=== PATIENT | female | born 1955 | race African-American/Black ===

== ENCOUNTER 2019-03-07 12:12 | Emergency (ER) | payer OTHER ==
[~2019-03-07] VITALS: Ht 160 cm; Wt 88.5 kg
--- OUTSIDE RECORDS SUMMARY | 2019-03-07 12:15 | XMS REPORT | Clinical Summary ---
Author Author [facility] Organization [facility] Address Unknown Phone Unavailable Care Team Providers Care Program Management Manager Name Role Phone Asked, No Pcp PCP Unavailable Allergies No Known Allergies Medications End Date Status Medication Sig Dispensed Refills Start Date Active valsartan-hydrochlorothia Take 1 tablet 3 zide (DIOVAN-HCT) by mouth 7 160-12.5 mg per tablet daily. Active glipiZIDE (GLUCOTROL) 5 Take 5 mg by 0 MG tablet mouth daily. Active propranolol LA (INDERAL Take 60 mg by 0 LA) 60 MG 24 hr capsule mouth daily. Active Problems Problem Noted Date Hyperlipidemia 04/02/2018 Smoking 08/27/2017 Environmental allergies 03/04/2017 Hypertension 03/04/2017 Elevated glucose level 03/04/2017 Encounters Care Team Description Date Type Specialty Jennifer Handley MD Wellness examination (Primary Dx) 09/22/2018 [facility] Jennifer Handley MD Annual physical exam (Primary Dx) 09/09/2018 Transcribe Radiology Orders Jennifer Handley MD Wellness examination (Primary Dx) 04/02/2018 [facility] after 03/06/2018 Immunizations Name Dates Previously Given Next Due FLUCELVAX QUAD PF (0.5mL 09/22/2018 syringe) INFLUENZA QUAD PF 03/04/2017 PPD Test 09/22/2018, 08/27/2017 Family History Medical History Relation Name Comments Hypertension Brother Aneurysm Mother Hypertension Sister Obesity Son Relation Name Status Comments Brother Alive Father Mother Sister Alive Son Alive Social History Date Tobacco Use Types Packs/Day Years Used Current Every Day Smoker 0.5 40 Alcohol Use Drinks/Week oz/Week Comments No rarely Sex Assigned at Date Recorded Not on file Industry Job Start Date Occupation Not on file Not on file Not on file Travel End Travel History Travel Start No recent travel history available. Last Filed Vital Signs Time Taken Vital Sign Reading 09/22/2018 11:14 AM CDT Blood Pressure 141/89 09/22/2018 11:14 AM CDT Pulse 70 - Temperature - 04/02/2018 11:25 AM CDT Respiratory Rate 18 - Oxygen Saturation - - Inhaled Oxygen - Concentration 09/22/2018 11:14 AM CDT Weight 89.9 kg (198 lb 4.8 oz) 09/22/2018 11:14 AM CDT Height 160.7 cm (5' 3.25") 09/22/2018 11:14 AM CDT Body Mass Index 34.85 Plan of Treatment Health Maintenance Due Date Last Done Comments CERVICAL CANCER SCREENING 1978 BREAST CANCER SCREENING 2007 COLON CANCER SCREENING 2007 SHINGLES VACCINES (#1) 2007 INFLUENZA VACCINE 06/25/2019 09/22/2018, 03/04/2017 Results Not on fileafter 03/06/2018 Advance Directives Patient has advance care planning documents on file. For more information, dirk flores contact: William Orellana [address] [place] [address]
--- OUTSIDE RECORDS SUMMARY | 2019-03-07 12:16 | XMS REPORT | Summary of Care ---
Author Author [facility] Primary Care [facility] Organization [facility] Address Unknown Phone Unavailable Encounter HQ Latrell_srinivasan(FIN) [id number] Date(s): 11/29/17 - 11/29/17 [facility] [address] [place] [address]- [phone] Discharge Disposition: Home or Self Care Attending Physician: Kallie Levine MD Referring Physician: Kallie Levine MD Vital Signs Most recent to 1 oldest [Reference Range]: Height 160.02 cm (11/29/17 10:46 AM) Temperature Oral 98.4 DegF [96.4-99.1 DegF] (11/29/17 10:46 AM) Blood Pressure 161/98 mmHg [90-140/60-90 mmHg] *HI* (11/29/17 10:46 AM) Respiratory Rate 12 BRMIN [14-20 BRMIN] *LOW* (11/29/17 10:46 AM) Peripheral Pulse 72 bpm Rate [60-100 bpm] (11/29/17 10:46 AM) Weight 88.182 kg (11/29/17 10:46 AM) Body Mass Index 34.44 m2 (11/29/17 10:46 AM) Problem List Condition Effective Dates Status Health Status Informant Benign hypertension1 Active Cystocele2 09/21/13 Resolved Dental consultation 06/21/15 Active and report3 Dizziness4, 5, 6, 7, 06/21/15 Active 8 H/O: hematuria9 09/28/13 Resolved Hypercholesterolemia 11/05/11 Active 10 Impaired glucose 08/29/12 Resolved zyqpvfczi52 Knee pain12, 13, 14 03/22/15 Resolved Obesity(Confirmed) Active Physical examination 06/21/15 Active bxcuqfxyy97 Shoulder joint 01/28/14 Resolved pain16 Ixhlwf58 05/15/11 Active Jadgxmc61 09/21/13 Resolved Thyroid iyfhkn18 08/29/12 Active Vitamin D 02/21/14 Active umzofjjkbs61 1Data migrated from [employer] on 04/23/15. 2Data migrated from [employer] on 04/23/15. 3Data migrated from [employer] on 07/16/15. 4Data migrated from [employer] on 07/16/15. 5Data migrated from [employer] on 06/01/15. 6Data migrated from [employer] on 06/01/15. 7Data migrated from [employer] on 04/26/15. 8Data migrated from [employer] on 04/23/15. 9Data migrated from [employer] on 06/10/15. 10Data migrated from [employer] on 04/23/15. 11Data migrated from [employer] on 04/23/15. 12Data migrated from [employer] on 06/01/15. 13Data migrated from [employer] on 06/01/15. 14Data migrated from [employer] on 04/26/15. 15Data migrated from [employer] on 07/16/15. 16Data migrated from [employer] on 04/23/15. 17Data migrated from [employer] on 04/23/15. 18Data migrated from [employer] on 04/23/15. 19Data migrated from [employer] on 04/23/15. 20Data migrated from [employer] on 04/23/15. Allergies, Adverse Reactions, Alerts Substance Reaction Severity Status metFORMIN Active Medications Astepro 0.15% (205.5 mcg/inh) nasal spray 2 spray, NASAL, BID, PRN for allergy symptoms, # 30 mL, 0 Refill(s), Pharmacy: [facility] [id number] Start Date: 11/29/17 Status: Ordered azithromycin 250 mg oral tablet See Instructions, Take 2 tablets by mouth the first day then 1 tablet by mouth d aily on days 2-5., X 5 day, # 6 tab, 0 Refill(s), Pharmacy: [facility] [id number] Start Date: 11/29/17 Stop Date: 12/04/17 Status: Completed ProAir HFA 90 mcg/inh inhalation aerosol with adapter 2 puff, INHALER, Q6H, PRN wheezing, coughing, or shortness of breath, # 1 ea, 1 Refill(s), Pharmacy: [facility] [id number] Start Date: 11/29/17 Status: Ordered Roxanasalmaría Perles 100 mg oral capsule 100 mg=1 cap, PO, Q8H, PRN cough, do not crush or chew, X 10 day, # 30 cap, 0 Re fill(s), Pharmacy: [facility] [id number] Start Date: 11/29/17 Stop Date: 12/09/17 Status: Completed Results No data available for this section Immunizations Given and Recorded Vaccine Date Status Refusal Reason influenza virus vaccine, inactivated 10/25/16 Recorded influenza virus vaccine, inactivated1 02/03/14 Given tetanus-diphtheria toxoids2 11/25/07 Given 1Result Comment: fluzone (>3 yrs.) [[id number]]. Migrated from [employer] ; Data migrated from [employer] on 12/27/2015. 2Result Comment: historical. Migrated from OBS ; Data migrated from [employer] on 12/27/2015. Procedures Procedure Date Related Diagnosis Body Site Status Repair of knee cruciate ligaments 2002 Completed Social History Social History Type Response Substance Abuse Use: None. Exercise Exercise duration: 30. Exercise frequency: 3-4 times/week. Exercise type: Walking.1 Employment/School Status: Employed. Work/School description: [employer]. Alcohol Current, Type Liquor. Frequency: 1-2 times per year. Started age 17 Years. Alcohol use interferes with work or home: No. Smoking Status Heavy tobacco smoker; Type: Cigarettes; Exposure to Tobacco Smoke None; Cigarette Smoking Last 365 Days Yes; Reg Smoking Cessation Counseling No; Started at age: 17.0; entered on: 11/29/17 1None Assessment and Plan No data available for this section
--- OUTSIDE RECORDS SUMMARY | 2019-03-07 12:16 | XMS REPORT | Summary of Care ---
Author Author [facility] Outpatient Imaging [facility] Outpatient Imaging [facility] Address Unknown Phone Unavailable Encounter HQ Anuntr_alistiven(FIN) [id number] Date(s): 04/17/18 - 04/17/18 [facility] Outpatient Imaging [facility] [address] [facility] [address] [place], [place] [address] [phone] Discharge Disposition: Home or Self Care Attending Physician: Kallie Levine MD Vital Signs No data available for this section Problem List Condition Effective Dates Status Health Status Informant Benign hypertension1 Active Cystocele2 09/21/13 Resolved Dental consultation 06/21/15 Active and report3 Dizziness4, 5, 6, 7, 06/21/15 Active 8 H/O: hematuria9 09/28/13 Resolved Hypercholesterolemia 11/05/11 Active 10 Impaired glucose 08/29/12 Resolved bpgzygcmp26 Knee pain12, 13, 14 03/22/15 Resolved Obesity(Confirmed) Active Physical examination 06/21/15 Active nnfzwyzbi08 Shoulder joint 01/28/14 Resolved pain16 Lddnav05 05/15/11 Active Uknmwfm07 09/21/13 Resolved Thyroid ljuqhs31 08/29/12 Active Vitamin D 02/21/14 Active asqfizaugm29 1Data migrated from [employer] on 04/23/15. [...] Substance Reaction Severity Status metFORMIN Active Medications No data available for this section Results No data available for this section Immunizations Given and Recorded Vaccine Date Status Refusal Reason influenza virus vaccine, inactivated 10/25/16 Recorded influenza virus vaccine, inactivated1 02/03/14 Given tetanus-diphtheria toxoids2 11/25/07 Given 1Result Comment: fluzone (>3 yrs.) [[id number]]. Migrated from OBS ; Data migrated from [employer] on 12/27/2015. 2Result Comment: historical. Migrated from OBS ; Data migrated from [employer] on 12/27/2015. Procedures Procedure Date Related Diagnosis Body Site Status Repair of knee cruciate ligaments 2002 Completed Social History Social History Type Response Substance Abuse Use: None. Exercise Exercise duration: 30. Exercise frequency: 3-4 times/week. Exercise type: Walking.1 Employment/School Status: Employed. Work/School description: [employer]. Alcohol Current, Type Liquor. Frequency: 1-2 times per year. Started age 17 Years. Alcohol use interferes with work or home: No. Smoking Status Heavy tobacco smoker; Type: Cigarettes; Exposure to Tobacco Smoke None; Cigarette Smoking Last 365 Days Yes; Reg Smoking Cessation Counseling No; Started at age: 17.0; entered on: 04/14/18 1None Assessment and Plan No data available for this section
--- OUTSIDE RECORDS SUMMARY | 2019-03-07 12:16 | XMS REPORT | Summary of Care ---
Author Author [facility] Cardiology [facility] Organization [facility] Address Unknown Phone Unavailable Encounter HQ Latrell_srinivasan(FIN) [id number] Date(s): 04/10/18 - 04/10/18 [facility] [address] [facility] [address] [place] [phone] Discharge Disposition: Home or Self Care Attending Physician: Franki Mg MD Referring Physician: Kallie Levine MD Vital Signs Most recent to 1 oldest [Reference Range]: Height 160.02 cm (04/10/18 11:06 AM) Blood Pressure 144/92 mmHg [90-140/60-90 mmHg] *HI* (04/10/18 11:06 AM) Peripheral Pulse 62 bpm Rate [60-100 bpm] (04/10/18 11:06 AM) Weight 90 kg (04/10/18 11:06 AM) Body Mass Index 35.15 m2 (04/10/18 11:06 AM) Problem List Condition Effective Dates Status Health Status Informant Benign hypertension1 Active Cystocele2 09/21/13 Resolved Dental consultation 06/21/15 Active and report3 Dizziness4, 5, 6, 7, 06/21/15 Active 8 H/O: hematuria9 09/28/13 Resolved Hypercholesterolemia 11/05/11 Active 10 Impaired glucose 08/29/12 Resolved mqiclyhvc68 Knee pain12, 13, 14 03/22/15 Resolved Obesity(Confirmed) Active Physical examination 06/21/15 Active xzpnrcjuz35 Shoulder joint 01/28/14 Resolved pain16 Oopvul23 05/15/11 Active Ssgwjfl22 09/21/13 Resolved Thyroid bkaulh68 08/29/12 Active Vitamin D 02/21/14 Active wsbxbjsenc59 1Data migrated from [employer] on 04/23/15. [...] Reaction Severity Status metFORMIN Active Medications No Known Medications Results No data available for this section Immunizations Given and Recorded Vaccine Date Status Refusal Reason influenza virus vaccine, inactivated 10/25/16 Recorded influenza virus vaccine, inactivated1 02/03/14 Given tetanus-diphtheria toxoids2 11/25/07 Given 1Result Comment: fluzone (>3 yrs.) [[id number]]. Migrated from OBS ; Data migrated from [...] No; Started at age: 17.0; entered on: 04/10/18 1None Assessment and Plan No data available for this section
--- OUTSIDE RECORDS SUMMARY | 2019-03-07 12:16 | XMS REPORT | Summary of Care ---
Author Author [facility] Primary Care [facility] Organization [facility] Address Unknown Phone Unavailable Encounter HQ Encntr_alias(FIN) [id number] Date(s): 02/27/19 - 02/28/19 [facility] [address] [facility] [place] [address]- [phone] Vital Signs No data available for this section Problem List Condition Effective Dates Status Health Status Informant Benign hypertension1 Active Cystocele2 09/21/13 Resolved Dental consultation 06/21/15 Active and report3 Dizziness4, 5, 6, 7, 06/21/15 Active 8 H/O: hematuria9 09/28/13 Resolved Hypercholesterolemia 11/05/11 Active 10 Impaired glucose 08/29/12 Resolved Knee pain12, 13, 14 03/22/15 Resolved Obesity(Confirmed) Active Physical examination 06/21/15 Active axmmpwgfn70 Shoulder joint 01/28/14 Resolved pain16 Ednfln24 05/15/11 Active Qzxcsvr62 09/21/13 Resolved Thyroid vrmyrn48 08/29/12 Active Vitamin D 02/21/14 Active rqkcuwjteg74 1Data migrated from [employer] on 04/23/15. [...] Substance Reaction Severity Status metFORMIN Active Medications Micardis HCT 80 mg-25 mg oral tablet 1 tab, PO, Daily, # 90 tab, 0 Refill(s), Pharmacy: [facility] [id number] Start Date: 02/28/19 Stop Date: 03/30/19 Status: Ordered Results No data available for this section Immunizations Given and Recorded Vaccine Date Status Refusal Reason influenza virus vaccine, inactivated 10/25/16 Recorded influenza virus vaccine, inactivated1 02/03/14 Given tetanus-diphtheria toxoids2 11/25/07 Given 1Result Comment: fluzone (>3 yrs.) [[id number]]. Migrated from OBS ; Data migrated from [...] type: Walking.1 Employment/School Status: Employed. Work/School description: [employer]. Alcohol Current, Type Liquor. Frequency: 1-2 times per year. Started age 17 Years. Alcohol use interferes with work or home: No. Smoking Status Heavy tobacco smoker; Type: Cigarettes; Exposure to Tobacco Smoke None; Cigarette Smoking Last 365 Days Yes; Reg Smoking Cessation Counseling No; Started at age: 17.0; entered on: 09/01/18 1None Assessment and Plan No data available for this section
--- OUTSIDE RECORDS SUMMARY | 2019-03-07 12:16 | XMS REPORT | Summary of Care ---
Author Author [facility] Primary Care [facility] Address Unknown Phone Unavailable Encounter HQ Anuntr_srinivasan(FIN) [id number] Date(s): 04/02/18 - 04/02/18 [facility] [address] [place] [address]- [phone] Discharge Disposition: Home or Self Care Attending Physician: Kallie Levine MD Referring Physician: Kallie Levine MD Vital Signs Most recent to 1 oldest [Reference Range]: Height 160 cm (04/02/18 2:08 PM) Temperature Oral 98.1 DegF [96.4-99.1 DegF] (04/02/18 2:08 PM) Blood Pressure 177/92 mmHg [90-140/60-90 mmHg] *HI* (04/02/18 2:08 PM) Peripheral Pulse 66 bpm Rate [60-100 bpm] (04/02/18 2:08 PM) Weight 92.386 kg (04/02/18 2:08 PM) Body Mass Index 36.09 m2 (04/02/18 2:08 PM) Problem List Condition Effective Dates Status Health Status Informant Benign hypertension1 Active Cystocele2 09/21/13 Resolved Dental consultation 06/21/15 Active and report3 Dizziness4, 5, 6, 7, 06/21/15 Active 8 H/O: hematuria9 09/28/13 Resolved Hypercholesterolemia 11/05/11 Active 10 Impaired glucose 08/29/12 Resolved iiugzxqgl24 Knee pain12, 13, 14 03/22/15 Resolved Obesity(Confirmed) Active Physical examination 06/21/15 Active eciehgirk21 Shoulder joint 01/28/14 Resolved pain16 Iovtls77 05/15/11 Active Pwwfdjg21 09/21/13 Resolved Thyroid deinyi78 08/29/12 Active Vitamin D 02/21/14 Active tfwxdmflbi91 1Data migrated from [employer] on 04/23/15. [...] Substance Reaction Severity Status metFORMIN Active Medications amLODIPine 2.5 mg oral tablet 2.5 mg=1 tab, PO, Daily, # 90 tab, 1 Refill(s), Pharmacy: [facility] [id number] Start Date: 04/02/18 Status: Ordered glipiZIDE 5 mg oral tablet See Instructions, TAKE 1 TABLET BY MOUTH BEFORE BREAKFAST, # 90 tab, 1 Refill(s) , Pharmacy: [facility] [id number] Start Date: 04/02/18 Status: Ordered hydrochlorothiazide-valsartan 25 mg-320 mg oral tablet 1 tab, PO, Daily, # 90 tab, 1 Refill(s), Pharmacy: [facility] [id number] Start Date: 04/02/18 Status: Ordered Lipitor 40 mg oral tablet 40 mg=1 tab, PO, Bedtime, # 90 tab, 1 Refill(s), Pharmacy: [facility] [id number] Start Date: 04/02/18 Status: Ordered Results No data available for this section Immunizations Given and Recorded Vaccine Date Status Refusal Reason influenza virus vaccine, inactivated 10/25/16 Recorded influenza virus vaccine, inactivated1 02/03/14 Given tetanus-diphtheria toxoids2 11/25/07 Given 1Result Comment: fluzone (>3 yrs.) [[id number]]. Migrated from [employer] ; Data migrated from [employer] on 12/27/2015. 2Result Comment: historical. Migrated from [employer] ; Data migrated from [employer] on 12/27/2015. Procedures Procedure Date Related Diagnosis Body Site Status Repair of knee cruciate ligaments 2002 Completed Social History Social History Type Response Substance Abuse Use: None. Exercise Exercise duration: 30. Exercise frequency: 3-4 times/week. Exercise type: Walking.1 Employment/School Status: Employed. Work/School description: [employer]. Alcohol Current, Type Liquor. Frequency: 1-2 times per year. Started age 17 Years. Alcohol use interferes with work or home: No. Smoking Status Heavy tobacco smoker; Type: Cigarettes; Exposure to Tobacco Smoke None; Cigarette Smoking Last 365 Days Yes; Reg Smoking Cessation Counseling No; Started at age: 17.0; entered on: 04/02/18 1None Assessment and Plan No data available for this section
--- OUTSIDE RECORDS SUMMARY | 2019-03-07 12:16 | XMS REPORT | Summary of Care ---
Author Author [facility] Primary Care [facility] Organization [facility] Address Unknown Phone Unavailable Encounter HQ Encntr_alias(FIN) [id number] Date(s): 02/18/19 - 02/19/19 [facility] [address] [place] [address]- [phone] Vital Signs No data available for this section Problem List Condition Effective Dates Status Health Status Informant Benign hypertension1 Active Cystocele2 09/21/13 Resolved Dental consultation 06/21/15 Active and report3 Dizziness4, 5, 6, 7, 06/21/15 Active 8 H/O: hematuria9 09/28/13 Resolved Hypercholesterolemia 11/05/11 Active 10 Impaired glucose 08/29/12 Resolved xmefmulss70 Knee pain12, 13, 14 03/22/15 Resolved Obesity(Confirmed) Active Physical examination 06/21/15 Active njgypnens88 Shoulder joint 01/28/14 Resolved pain16 Djhzgf60 05/15/11 Active Jijflza44 09/21/13 Resolved Thyroid dbgobm09 08/29/12 Active Vitamin D 02/21/14 Active llnngvuxvw58 1Data migrated from [employer] on 04/23/15. [...] 11/25/07 Given 1Result Comment: fluzone (>3 yrs.) [[id number]]. Migrated from OBS ; Data migrated from [...] type: Walking.1 Employment/School Status: Employed. Work/School description: [employer]. Alcohol Current, Type Liquor. Frequency: 1-2 times [...]
--- OUTSIDE RECORDS SUMMARY | 2019-03-07 12:16 | XMS REPORT | Summary of Care ---
Author Author [facility] Primary Care [facility] Address Unknown Phone Unavailable Encounter HQ Anuntr_alistiven(FIN) [id number] Date(s): 04/14/18 - 04/14/18 [facility] [address] [address]- [phone] Attending Physician: Kallie Levine MD Referring Physician: Kallie Levine MD Vital Signs No data available for this section Problem List Condition Effective Dates Status Health Status Informant Benign hypertension1 Active Cystocele2 09/21/13 Resolved Dental consultation 06/21/15 Active and report3 Dizziness4, 5, 6, 7, 06/21/15 Active 8 H/O: hematuria9 09/28/13 Resolved Hypercholesterolemia 11/05/11 Active 10 Impaired glucose 08/29/12 Resolved xsivrfnfx50 Knee pain12, 13, 14 03/22/15 Resolved Obesity(Confirmed) Active Physical examination 06/21/15 Active eijofzfad37 Shoulder joint 01/28/14 Resolved pain16 Ecbksr77 05/15/11 Active Ylklybd53 09/21/13 Resolved Thyroid muhwpq58 08/29/12 Active Vitamin D 02/21/14 Active tloeowfbch30 1Data migrated from [employer] on 04/23/15. [...] 11/25/07 Given 1Result Comment: fluzone (>3 yrs.) [[id number]]. Migrated from OBS ; Data migrated from [...] type: Walking.1 Employment/School Status: Employed. Work/School description: [employer]. Alcohol Current, Type Liquor. Frequency: 1-2 times [...]
--- OUTSIDE RECORDS SUMMARY | 2019-03-07 12:16 | XMS REPORT | Summary of Care ---
Author Author [facility] Cardiology [facility] Organization [facility] Cardiology [facility] Address Unknown Phone Unavailable Encounter HQ Yadira(FIN) [id number] Date(s): 04/14/18 - 04/14/18 [facility] [address] [facility] [address] [facility] [address] [place] [phone] Discharge Disposition: Home or Self Care Attending Physician: Franki Mg MD Referring Physician: Kallie Levine MD Vital Signs Most recent to 1 oldest [Reference Range]: Height 160.02 cm (04/14/18 10:44 AM) Blood Pressure 114/74 mmHg [90-140/60-90 mmHg] (04/14/18 10:44 AM) Peripheral Pulse 59 bpm Rate [60-100 bpm] *LOW* (04/14/18 10:44 AM) Weight 90 kg (04/14/18 10:44 AM) Body Mass Index 35.15 m2 (04/14/18 10:44 AM) Problem List Condition Effective Dates Status Health Status Informant Benign hypertension1 Active Cystocele2 09/21/13 Resolved Dental consultation 06/21/15 Active and report3 Dizziness4, 5, 6, 7, 06/21/15 Active 8 H/O: hematuria9 09/28/13 Resolved Hypercholesterolemia 11/05/11 Active 10 Impaired glucose 08/29/12 Resolved qxwphoykv14 Knee pain12, 13, 14 03/22/15 Resolved Obesity(Confirmed) Active Physical examination 06/21/15 Active dcdtnnels12 Shoulder joint 01/28/14 Resolved pain16 Clowrj83 05/15/11 Active Pzrkfcu11 09/21/13 Resolved Thyroid nhrysy00 08/29/12 Active Vitamin D 02/21/14 Active igxgnwonru84 1Data migrated from [employer] on 04/23/15. [...] 11/25/07 Given 1Result Comment: fluzone (>3 yrs.) [[id number]]. Migrated from OBS ; Data migrated from [...] type: Walking.1 Employment/School Status: Employed. Work/School description: [employer]. Alcohol Current, Type Liquor. Frequency: 1-2 times [...]
--- OUTSIDE RECORDS SUMMARY | 2019-03-07 12:16 | XMS REPORT | Summary of Care ---
Author Author [facility] Address Unknown Phone Unavailable Encounter HQ Florianr_srinivasan(FIN) [id number] Date(s): 04/08/18 - 04/08/18 [facility] [address] [address]- [phone] Discharge Disposition: Home or Self Care Attending Physician: Kallie Levine MD Vital Signs Most recent to 1 oldest [Reference Range]: Height 157.48 cm (04/08/18 3:17 PM) Temperature Oral 98.5 DegF [96.4-99.1 DegF] (04/08/18 3:17 PM) Blood Pressure 147/90 mmHg [90-140/60-90 mmHg] *HI* (04/08/18 3:17 PM) Respiratory Rate 15 BRMIN [14-20 BRMIN] (04/08/18 3:17 PM) Peripheral Pulse 71 bpm Rate [60-100 bpm] (04/08/18 3:17 PM) Weight 89.091 kg (04/08/18 3:17 PM) Body Mass Index 35.92 m2 (04/08/18 3:17 PM) Problem List Condition Effective Dates Status Health Status Informant Benign hypertension1 Active Cystocele2 09/21/13 Resolved Dental consultation 06/21/15 Active and report3 Dizziness4, 5, 6, 7, 06/21/15 Active 8 H/O: hematuria9 09/28/13 Resolved Hypercholesterolemia 11/05/11 Active 10 Impaired glucose 08/29/12 Resolved [id number] Knee pain12, 13, 14 03/22/15 Resolved Obesity(Confirmed) Active Physical examination 06/21/15 Active Shoulder joint 01/28/14 Resolved pain16 Ujqnss18 05/15/11 Active Hamiuwg20 09/21/13 Resolved Thyroid [id number] 08/29/12 Active Vitamin D 02/21/14 Active [id number] 1Data migrated from [employer] on 04/23/15. [...] Substance Reaction Severity Status metFORMIN Active Medications hydrochlorothiazide 25 mg oral tablet 25 mg=1 tab, PO, Daily, # 30 tab, 1 Refill(s) Start Date: 04/08/18 Status: Ordered propranolol 60 mg oral capsule, extended release 60 mg=1 cap, PO, Daily, # 30 cap, 0 Refill(s) Start Date: 04/08/18 Status: Ordered Results No data available for this section Immunizations Given and Recorded Vaccine Date Status Refusal Reason influenza virus vaccine, inactivated 10/25/16 Recorded influenza virus vaccine, inactivated1 02/03/14 Given tetanus-diphtheria toxoids2 11/25/07 Given 1Result Comment: fluzone (>3 yrs.) [[id number]]. Migrated from OBS ; Data migrated from [employer] on 12/27/2015. 2Result Comment: historical. Migrated from OBS ; Data migrated from [employer] on 12/27/2015. Procedures Procedure Date Related Diagnosis Body Site Status Repair of knee cruciate ligaments 2002 Completed Social History Social History Type Response Substance Abuse Use: None. Exercise Exercise duration: 30. Exercise frequency: 3-4 times/week. Exercise type: Walking.1 Employment/School Status: Employed. Work/School description: [employer]. Alcohol Current, Type Liquor. Frequency: 1-2 times [...]
--- OUTSIDE RECORDS SUMMARY | 2019-03-07 12:16 | XMS REPORT | Continuity of Care Document ---
Author Author [facility] Interface Address Unknown Phone Unavailable Problems Problem Status Onset Date Classification Date Reported Comments Source M79.671 - PAIN IN RIGHT FOOT Active 07/16/2016 [facility] SCREENING Active 06/23/2015 [facility] Dental consultation and report<sup>3</sup> Active 06/21/2015 Problem 03/06/2019 Data migrated from [employer] on 07/16/15. [facility] Dizziness<sup>4, 5, 6, 7, 8</sup> Active 06/21/2015 Problem 03/06/2019 Data migrated from [employer] on 04/23/15. [facility] Physical examination procedure<sup>15</sup> Active 06/21/2015 Problem 03/06/2019 Data migrated from [employer] on 07/16/15. [facility] PHYSICAL EXAM Active 06/21/2015 Condition 06/23/2015 [facility] DENTAL EXAMINATION Active 06/21/2015 Condition 06/23/2015 [facility] Knee pain<sup>12, 13, 14</sup> Resolved 03/22/2015 Problem 03/06/2019 Data migrated from [employer] on 04/26/15. [facility] KNEE PAIN Active 03/22/2015 Condition 06/23/2015 [facility] CHEST PAIN Active 11/08/2014 Condition 06/23/2015 [facility] DIZZINESS Active 03/10/2014 Condition 06/23/2015 [facility] Vitamin D deficiency<sup>20</sup> Active 02/21/2014 Problem 03/06/2019 Data migrated from [employer] on 04/23/15. [facility] VITAMIN D DEFICIENCY Active 02/21/2014 Condition 06/23/2015 [facility] Group V76.12 - SCREEN MAMMOGRA Active 02/10/2014 [facility] ROUTINE GYNECOLOGICAL EXAMINATION Active 02/03/2014 Condition 06/23/2015 [facility] OTHER SCREENING MAMMOGRAM Active 02/03/2014 Condition 06/23/2015 [facility] PHYSICAL EXAMINATION Active 02/03/2014 Condition 06/23/2015 [facility] SPECIAL SCREENING EXAMINATION OTH SPEC VIRAL DZ Active 02/03/2014 Condition 06/23/2015 [facility] Shoulder joint pain<sup>16</sup> Resolved 01/28/2014 Problem 03/06/2019 Data migrated from [employer] on 04/23/15. JER[facility]IE [facility] SHOULDER PAIN, RIGHT Active 01/28/2014 Condition 06/23/2015 [facility] 599.70 - HEMATURIA NOS Active 10/01/2013 [facility] H/O: hematuria<sup>9</sup> Resolved 09/28/2013 Problem 03/06/2019 Data migrated from [employer] on 06/10/15. [facility] HEMATURIA, MICROSCOPIC, HX OF Inactive 09/28/2013 Condition 06/23/2015 [facility] JULIANE Active 09/24/2013 [facility] Cystocele<sup>2</sup> Resolved 09/21/2013 Problem 03/06/2019 Data migrated from [employer] on 04/23/15. JERAMIE [facility] Snoring<sup>18</sup> Resolved 09/21/2013 Problem 03/06/2019 Data migrated from [employer] on 04/23/15. JERAMIE [facility] SNORING Active 09/21/2013 Condition 06/23/2015 [facility] CYSTOCELE WITHOUT MENTION UTERINE PROLAPSE LAT Active 09/21/2013 Condition 06/23/2015 [facility] FATIGUE, ACUTE Inactive 02/04/2013 Condition 06/23/2015 [facility] Impaired glucose tolerance<sup>11</sup> Resolved 08/29/2012 Problem 03/06/2019 Data migrated from [employer] on 04/23/15. [facility] Thyroid nodule<sup>19</sup> Active 08/29/2012 Problem 03/06/2019 Data migrated from [employer] on 04/23/15. [facility] SCREENING, COLON CANCER Active 08/29/2012 Condition 06/23/2015 [facility] PREDIABETES Active 08/29/2012 Condition 06/23/2015 [facility] SCIATICA, RIGHT Inactive 08/14/2012 Condition 06/23/2015 [facility] ABSCESS, BREAST, LEFT Inactive 12/19/2011 Condition 06/23/2015 [facility] Hypercholesterolemia<sup>10</sup> Active 11/05/2011 Problem 03/06/2019 Data migrated from [employer] on 04/23/15. [facility] HYPERCHOLESTEROLEMIA Active 11/05/2011 Condition 06/23/2015 [facility] FASTING HYPERGLYCEMIA Inactive 07/11/2011 Condition 06/23/2015 [facility] NEUROMUSCULAR DISORDER Inactive 07/01/2011 Condition 06/23/2015 [facility] Smoker<sup>17</sup> Active 05/15/2011 Problem 03/06/2019 Data migrated from [employer] on 04/23/15. [facility] COUGH, CHRONIC Inactive 05/15/2011 Condition 06/23/2015 [facility] SMOKER Active 05/15/2011 Condition 06/23/2015 [facility] THYROID NODULE Inactive 05/15/2011 Condition 06/23/2015 [facility] GERD Inactive 05/15/2011 Condition 06/23/2015 [facility] DERMATITIS Inactive 05/15/2011 Condition 06/23/2015 [facility] Benign hypertension<sup>1</sup> Active Problem 03/06/2019 Data migrated from [employer] on 04/23/15. [facility] Obesity Active Problem 03/06/2019 JER[facility]IE [facility] HYPERTENSION - BENIGN ESSENTIAL Active Condition 06/23/2015 Medical [facility] FH DIABETES - DM Inactive Condition 06/23/2015 [facility] Medications Medication Details Route Status Patient Instructions Ordering Provider Order Date Source propranolol 60 mg oral capsule, extended release 60 mg=1 cap, PO, Daily, # 30 cap, 2 Refill(s), Pharmacy: [facility] [id number] Active 03/04/2019 [facility] Hydrochlorothiazide 25 MG / telmisartan 80 MG Oral Tablet [Micardis-HCT 80/25] 1 tab, PO, Daily, # 30 tab, 2 Refill(s), Pharmacy: [facility] [id number] Active 03/04/2019 [facility] Glipizide 10 MG Oral Tablet 10 mg=1 tab, PO, Before Breakfast, # 30 tab, 2 Refill(s), Pharmacy: [facility] [id number] Active 03/04/2019 [facility] Fenofibrate 48 MG Oral Tablet =1 cap, PO, Daily, # 30 cap, 2 Refill(s), Pharmacy: [facility] [id number] Active 03/04/2019 [facility] atorvastatin 40 MG Oral Tablet [Lipitor] 40 mg=1 tab, PO, Bedtime, # 30 tab, 2 Refill(s), Pharmacy: [facility] [id number] Active 03/04/2019 [facility] amLODIPine 2.5 mg oral tablet 2.5 mg=1 tab, PO, Daily, # 30 tab, 2 Refill(s), Pharmacy: [facility] [id number] Active 03/04/2019 [facility] Hydrochlorothiazide 25 MG / telmisartan 80 MG Oral Tablet [Micardis-HCT 80/25] 1 tab, PO, Daily, # 90 tab, 0 Refill(s), Pharmacy: [facility] [id number] Active 03/01/2019 [facility] amLODIPine 2.5 mg oral tablet 2.5 mg=1 tab, PO, Daily, # 90 tab, 0 Refill(s), [facility] [id number] Active 06/05/2018 [facility] Glipizide 10 MG Oral Tablet 10 mg=1 tab, PO, Before Breakfast, # 120 tab, 0 Refill(s), [facility] [id number] Active 05/10/2018 [facility] propranolol 60 mg oral capsule, extended release 60 mg=1 cap, PO, Daily, # 120 cap, 0 Refill(s), [facility] [id number] Active 05/10/2018 [facility] Hydrochlorothiazide 25 MG Oral Tablet 25 mg=1 tab, PO, Daily, # 30 tab, 1 Refill(s) Active 04/08/2018 [facility] propranolol 60 mg oral capsule, extended release 60 mg=1 cap, PO, Daily, # 30 cap, 0 Refill(s) Active 04/08/2018 [facility] Glipizide 5 MG Oral Tablet See Instructions, TAKE 1 TABLET BY MOUTH BEFORE BREAKFAST, # 90 tab, 1 Refill(s), [facility] [id number] Active 04/02/2018 [facility] atorvastatin 40 MG Oral Tablet [Lipitor] 40 mg=1 tab, PO, Bedtime, # 90 tab, 1 Refill(s), Pharmacy: [facility] [id number] Active 04/02/2018 [facility] Hydrochlorothiazide 25 MG / valsartan 320 MG Oral Tablet 1 tab, PO, Daily, # 90 tab, 1 Refill(s), [facility] [id number] Active 04/02/2018 [facility] amLODIPine 2.5 mg oral tablet 2.5 mg=1 tab, PO, Daily, # 90 tab, 1 Refill(s), Pharmacy: [facility] [id number] Active 04/02/2018 [facility] 200 ACTUAT Albuterol 0.09 MG/ACTUAT Metered Dose Inhaler [ProAir HFA] 2 puff, INHALER, Q6H, PRN wheezing, coughing, or shortness of breath, # 1 ea, 1 Refill(s), Pharmacy: [facility] [id number] Active 11/29/2017 [facility] azithromycin 250 mg oral tablet See Instructions, Take 2 tablets by mouth the first day then 1 tablet by mouth daily on days 2-5., X 5 day, # 6 tab, 0 Refill(s), [facility] [id number] No Longer Active 11/29/2017 [facility] benzonatate 100 MG Oral Capsule [Tessalon Perles] 100 mg=1 cap, PO, Q8H, PRN cough, do not crush or chew, X 10 day, # 30 cap, 0 Refill(s), [facility] [id number] No Longer Active 11/29/2017 [facility] Azelastine hydrochloride 0.206 MG/ACTUAT Metered Dose Nasal [place] [Astepro] 2 spray, NASAL, BID, PRN for allergy symptoms, # 30 mL, 0 Refill(s), [facility] [id number] Active 11/29/2017 [facility] D 2000 2000 UNIT TABS Take 1 pill by mouth once a day Active 02/21/2014 [facility] LIPITOR 40 MG TABS Take 1 pill by mouth at bedtime Active 02/21/2014 [facility] SIMVASTATIN 20 MG TABS Take 1 pill by mouth at bedtime Active 02/21/2014 [facility] LIPITOR 40 MG TABS Take 1 pill by mouth at bedtime Active 02/21/2014 [facility] MEDROL (ROXY) 4 MG TABS Take as directed No Longer Active 08/14/2012 [facility] DIOVAN 160 MG TAB one po qday Active 08/14/2012 [facility] CHANTIX STARTING MONTH ORXY 0.5 MG X 11 & 1 MG X 14 MISC 0.5mg po qd x3 days, then 0.5mg bid x3 days, then 1 mg bid No Longer Active 08/14/2012 [facility] NAPROXEN 500 MG TABS one po [id number] prn No Longer Active 08/14/2012 [facility] NAPROXEN 500 MG TABS one po [id number] prn No Longer Active 08/14/2012 [facility] DIOVAN 160 MG TAB one po qday Active 08/14/2012 [facility] NAPROXEN 500 MG TABS one po [id number] prn No Longer Active 08/14/2012 [facility] DICLOXACILLIN SODIUM 500 MG CAPS take 1 po qid x 10 d No Longer Active 12/19/2011 [facility] NASONEX SUSP 50 MCG/ACT 2 spray each nostril daily prn allergies No Longer Active 07/19/2011 [facility] NASONEX SUSP 50 MCG/ACT 2 spray each nostril daily prn allergies No Longer Active 07/19/2011 [facility] NASONEX SUSP 50 MCG/ACT 2 spray each nostril daily prn allergies No Longer Active 07/19/2011 [facility] DIOVAN 160 MG TABS take 1/2 a pill po qd No Longer Active 07/13/2011 [facility] METOPROLOL TARTRATE 50 MG TABS take 1 po qd Active 07/13/2011 [facility] METOPROLOL TARTRATE 50 MG TABS take 1 po qd No Longer Active 07/13/2011 [facility] DIOVAN 160 MG TABS take 1/2 a pill po qd No Longer Active 07/13/2011 [facility] METOPROLOL TARTRATE 50 MG TABS take 1 po qd No Longer Active 07/13/2011 [facility] DOXAZOSIN MESYLATE 4 MG TABS 1 po qd Active 05/15/2011 [facility] TRIAMTERENE-HCTZ 37.5-25 MG TABS 1 po qd Active 05/15/2011 [facility] TUSSIONEX PENNKINETIC ER 8-10 MG/5ML LQCR 1 tsp po bid prn cough No Longer Active 05/15/2011 [facility] PERMETHRIN 5 % CREA put cream on entire body and wash off in 8-14 h, then repeat in 14 d if live mites still present No Longer Active 05/15/2011 [facility] LISINOPRIL 10 MG TABS 1 po qd No Longer Active 05/15/2011 [facility] HYDROXYZINE HCL 25 MG TABS 1 po bid for itching No Longer Active 05/15/2011 [facility] PRILOSEC CAP 20MG CR 1 po q a.m. 1 h before eating/drinking anything No Longer Active 05/15/2011 [facility] DOXAZOSIN MESYLATE 4 MG TABS 1 po qd Active 05/15/2011 [facility] LISINOPRIL 10 MG TABS 1 po qd No Longer Active 05/15/2011 [facility] DOXAZOSIN MESYLATE 4 MG TABS 1 po qd Active 05/15/2011 [facility] TRIAMTERENE-HCTZ 37.5-25 MG TABS 1 po qd Active 05/15/2011 [facility] DOXAZOSIN MESYLATE 4 MG TABS 1 po qd Active 05/15/2011 [facility] LISINOPRIL 10 MG TABS 1 po qd No Longer Active 05/15/2011 [facility] HYDROXYZINE HCL 25 MG TABS 1 po bid for itching No Longer Active 05/15/2011 [facility] Allergies, Adverse Reactions, Alerts Substance Category Reaction Severity Reaction type Status Date Reported Comments Source metFORMIN Assertion Drug allergy Active [facility] Immunizations Immunization Date Given Site Status Last Updated Comments Source influenza virus vaccine, inactivated 10/25/2016 robin Levine [facility] influenza immunization (Flu Vax) has been administered 02/03/2014 completed [facility] influenza virus vaccine, inactivated<sup>1</sup> 02/03/2014 Left Deltoid completed GE Result Comment: fluzone (>3 yrs.) [[id number]]. Migrated from OBS ; Data migrated from [employer] on 12/27/2015. JERAMIE [facility] tetanus-diphtheria toxoids<sup>2</sup> 11/25/2007 completed GE Result Comment: historical. Migrated from OBS ; Data migrated from [employer] on 12/27/2015. [facility] dT (Diphtheria and Tetanus) booster given 11/25/2007 completed [facility] Results Order Name Results Value Reference Range Date Interpretation Comments Source Thyroid US Thyroid US Clinical Indication: E04.1 Nontoxic single thyroid nodule - .; Comparison: 09/25/2013. TECHNIQUE: Sonographic evaluation of the thyroid gland is performed FINDINGS: The right thyroid gland measures 4.3 x 1.6 x 1.8 cm. The left thyroid gland measures 4.3 x 1.4 x 2.0 cm. The thyroid isthmus measures 0.8 cm in thickness. At the isthmus, there is a 0.9 x 0.7 x 0.8 cm slightly hypoechoic nodule. More inferiorly in the isthmus, an isoechoic 1.4 x 1.4 x 1.3 cm solid nodule is present. Within the right lobe upper pole is 0.3 x 0.2 x 0.2 cm anechoic cyst is present. Larger adjacent 1.0 x 0.7 x 0.7 cm anechoic cyst is seen. Smaller 0.3 cm adjacent anechoic cyst is noted. There is a lower pole 0.5 x 0.3 x 0.5 cm hypoechoic nodule, previously measuring 0.4 cm. In the left lobe, there is an upper pole 1.0 x 0.6 x 0.8 cm anechoic cyst. Adjacent 0.5 x 0.3 x 0.4 cm anechoic cyst is noted. Lower pole slightly hypoechoic solid nodule measures 1.0 x 0.6 x 0.9 cm, previously measuring 0.6 cm. Mid to lower pole isoechoic solid 1.3 x 1.3 x 1.6 cm nodule is noted. Normal color Doppler flow is visualized. There is no adjacent jugular chain lymphadenopathy. IMPRESSION: 1. Left lobe mid to lower pole isoechoic solid nodule measures 1.6 cm, classified as TI-RADS 3. Based on size criteria and interval appearance since prior thyroid ultrasound of 09/25/2013, ultrasound-guided fine-needle aspiration is advised. 2. 2 isthmus nodules appear new since the prior examination. Hypoechoic 0.9 cm nodule is classified as TI-RADS 4 and adjacent isoechoic 1.4 cm nodule is classified as TI-RADS 3. Ultrasound follow-up is suggested for these nodules. SL: [id number] 04/17/2018 - - Read by: Khanh Childers MD Dictated Date/time: 04/17/18 17:01 Electronically Signed by: Khanh Childers MD 04/17/18 17:14 FINAL REPORT [facility] Foot series DX Foot series DX Study: Right foot, 3 views Clinical Indication: Right foot pain Comparison: None FINDINGS: Multiple views of the right foot show no acute bony fracture, joint dislocation, or suspicious osseous lesion. Punctate 1 mm radiopaque density in the tip of the soft tissues of the 1st toe is seen, may represent foreign body. Posterior and plantar calcaneal enthesophytes are noted. IMPRESSION: No acute bony abnormality of the right foot. SL: [id number] 07/16/2016 - - Read by: Manjit Seaman MD Dictated Date/time: 07/16/16 11:59 Electronically Signed by: Manjit Seaman MD 07/16/16 12:00 FINAL REPORT [facility] Urinalysis UA COLOR Light Yellow 06/21/2015 [facility] Group Urinalysis BACTERIA URN Occasional 06/21/2015 [facility] Chemistry HGBA1C 6.5 % - 5.6 08/31/2014 [facility] Chemistry CHOLESTEROL 166 mg/dl - 199 08/31/2014 [facility] Chemistry TRIGLYCERIDE 340 mg/dl - 149 08/31/2014 [facility] Chemistry HDL 30 mg/dl >=61 08/31/2014 [facility] Chemistry LDL 68 mg/dl - 99 08/31/2014 [facility] Chemistry SODIUM 141 MEQ/L mmol/L 135 - 145 08/31/2014 [facility] Chemistry POTASSIUM 4.1 MEQ/L mmol/L 3.5 - 5.1 08/31/2014 [facility] Chemistry CREATININE 0.6 mg/dL 0.5 - 1.4 08/31/2014 [facility] Chemistry BUN 15 mg/dL 7 - 22 08/31/2014 [facility] Chemistry BUN/CREAT 25 6 - 25 08/31/2014 [facility] Chemistry ALBUMIN 4.1 g/dL 3.5 - 5.0 08/31/2014 [facility] Chemistry CALCIUM 9.5 mg/dL 8.5 - 10.5 08/31/2014 [facility] Chemistry SGPT (ALT) 22 U/L 0 - 65 08/31/2014 [facility] Chemistry SGOT (AST) 14 U/L 0 - 37 08/31/2014 [facility] Chemistry ALK PHOS 66 U/L 39 - 136 08/31/2014 [facility] Hematology HGB 13.0 g/dL 12.0 - 16.0 08/31/2014 [facility] Hematology HCT 37.8 % 36.0 - 48.0 08/31/2014 [facility] Hematology PLATELETS 285 K/CMM /mm3 133 - 450 08/31/2014 [facility] Chemistry SODIUM 139 MEQ/L mmol/L 135 - 145 03/10/2014 [facility] Chemistry POTASSIUM 4.4 MEQ/L mmol/L 3.5 - 5.1 03/10/2014 [facility] Chemistry CREATININE 0.6 mg/dL 0.5 - 1.4 03/10/2014 [facility] Chemistry BUN 14 mg/dL 7 - 22 03/10/2014 [facility] Chemistry BUN/CREAT 23 6 - 25 03/10/2014 [facility] Chemistry ALBUMIN 4.3 g/dL 3.5 - 5.0 03/10/2014 [facility] Chemistry CALCIUM 9.1 mg/dL 8.5 - 10.5 03/10/2014 [facility] Chemistry SGPT (ALT) 20 U/L 0 - 65 03/10/2014 [facility] Chemistry SGOT (AST) 12 U/L 0 - 37 03/10/2014 [facility] Chemistry ALK PHOS 63 U/L 39 - 136 03/10/2014 [facility] Chemistry SODIUM 139 MEQ/L mmol/L 135 - 145 03/10/2014 [facility] Chemistry POTASSIUM 4.4 MEQ/L mmol/L 3.5 - 5.1 03/10/2014 [facility] Chemistry CREATININE 0.6 mg/dL 0.5 - 1.4 03/10/2014 [facility] Chemistry BUN 14 mg/dL 7 - 22 03/10/2014 [facility] Chemistry BUN/CREAT 23 6 - 25 03/10/2014 [facility] Chemistry ALBUMIN 4.3 g/dL 3.5 - 5.0 03/10/2014 [facility] Chemistry CALCIUM 9.1 mg/dL 8.5 - 10.5 03/10/2014 [facility] Chemistry SGPT (ALT) 20 U/L 0 - 65 03/10/2014 [facility] Chemistry SGOT (AST) 12 U/L 0 - 37 03/10/2014 [facility] Chemistry ALK PHOS 63 U/L 39 - 136 03/10/2014 [facility] Hematology HGB 12.7 g/dL 12.0 - 16.0 03/10/2014 [facility] Hematology HCT 37.9 % 36.0 - 48.0 03/10/2014 [facility] Hematology PLATELETS 281 K/CMM /mm3 133 - 450 03/10/2014 Medical [facility] Hematology HGB 12.7 g/dL 12.0 - 16.0 03/10/2014 [facility] Hematology HCT 37.9 % 36.0 - 48.0 03/10/2014 Medical [facility] Hematology PLATELETS 281 K/CMM /mm3 133 - 450 03/10/2014 [facility] Chemistry HGBA1C 6.6 % - 5.6 02/10/2014 [facility] Chemistry CHOLESTEROL 148 mg/dl - 199 02/10/2014 [facility] Chemistry TRIGLYCERIDE 160 mg/dl - 149 02/10/2014 [facility] Chemistry HDL 33 mg/dl >=61 02/10/2014 Medical [facility] Chemistry LDL 83 mg/dl - 99 02/10/2014 [facility] Chemistry SODIUM 139 MEQ/L mmol/L 135 - 145 02/10/2014 [facility] Chemistry POTASSIUM 4.0 MEQ/L mmol/L 3.5 - 5.1 02/10/2014 Medical [facility] Chemistry CREATININE 0.6 mg/dL 0.5 - 1.4 02/10/2014 [facility] Chemistry BUN 14 mg/dL 7 - 22 02/10/2014 Medical [facility] Chemistry BUN/CREAT 23 6 - 25 02/10/2014 Medical [facility] Chemistry ALBUMIN 4.3 g/dL 3.5 - 5.0 02/10/2014 Medical [facility] Chemistry CALCIUM 9.2 mg/dL 8.5 - 10.5 02/10/2014 [facility] Chemistry SGPT (ALT) 20 U/L 0 - 65 02/10/2014 Medical [facility] Chemistry SGOT (AST) 9 U/L 0 - 37 02/10/2014 [facility] Chemistry ALK PHOS 61 U/L 39 - 136 02/10/2014 [facility] Chemistry TSH 1.800 uIU/mL 0.360 - 3.740 02/10/2014 Medical [facility] Hematology HGB 12.8 g/dL 12.0 - 16.0 02/10/2014 [facility] Hematology HCT 37.7 % 36.0 - 48.0 02/10/2014 Medical [facility] Hematology PLATELETS 255 K/CMM /mm3 133 - 450 02/10/2014 [facility] Urinalysis UA COLOR Light Yellow 02/10/2014 [facility] Urinalysis BACTERIA URN Occasional 02/10/2014 [facility] Urinalysis UA COLOR Colorless 10/01/2013 [facility] Urinalysis BACTERIA URN Occasional 10/01/2013 [facility] Urinalysis UA COLOR Colorless 10/01/2013 [facility] Urinalysis BACTERIA URN Occasional 10/01/2013 [facility] Chemistry HGBA1C 6.3 % - 5.6 09/21/2013 [facility] Chemistry CHOLESTEROL 191 mg/dl - 199 09/21/2013 [facility] Chemistry TRIGLYCERIDE 174 mg/dl - 149 09/21/2013 [facility] Chemistry HDL 37 mg/dl >=61 09/21/2013 [facility] Chemistry LDL 119 mg/dl - 99 09/21/2013 [facility] Chemistry SODIUM 140 MEQ/L mmol/L 135 - 145 09/21/2013 [facility] Chemistry POTASSIUM 4.3 MEQ/L mmol/L 3.5 - 5.1 09/21/2013 [facility] Chemistry CREATININE 0.7 mg/dL 0.5 - 1.4 09/21/2013 [facility] Chemistry BUN 13 mg/dL 7 - 22 09/21/2013 [facility] Chemistry BUN/CREAT 19 6 - 25 09/21/2013 [facility] Chemistry ALBUMIN 4.5 g/dL 3.5 - 5.0 09/21/2013 [facility] Chemistry CALCIUM 10.0 mg/dL 8.5 - 10.5 09/21/2013 [facility] Chemistry SGPT (ALT) 27 U/L 0 - 65 09/21/2013 Medical [facility] Chemistry SGOT (AST) 15 U/L 0 - 37 09/21/2013 [facility] Chemistry ALK PHOS 73 U/L 39 - 136 09/21/2013 [facility] Chemistry TSH 2.700 uIU/mL 0.360 - 3.740 09/21/2013 [facility] Hematology HGB 12.7 g/dL 12.0 - 16.0 09/21/2013 Medical [facility] Hematology HCT 38.4 % 36.0 - 48.0 09/21/2013 Medical [facility] Hematology PLATELETS 285 K/CMM /mm3 133 - 450 09/21/2013 [facility] Urinalysis UA COLOR Light Yellow 09/21/2013 [facility] Urinalysis BACTERIA URN Occasional 09/21/2013 Medical [facility] Chemistry HGBA1C 6.3 % 02/10/2013 [facility] Chemistry CHOLESTEROL 197 mg/dl 120 - 200 02/10/2013 Medical [facility] Chemistry TRIGLYCERIDE 157 mg/dl 0 - 200 02/10/2013 [facility] Chemistry HDL 27 mg/dl >=35 02/10/2013 Medical [facility] Chemistry LDL 139 mg/dl 0 - 129 02/10/2013 [facility] Chemistry SODIUM 142 MEQ/L mmol/L 135 - 145 02/10/2013 [facility] Chemistry POTASSIUM 4.1 MEQ/L mmol/L 3.5 - 5.1 02/10/2013 [facility] Chemistry CREATININE 0.6 mg/dL 0.5 - 1.4 02/10/2013 Medical [facility] Chemistry BUN 16 mg/dL 7 - 22 02/10/2013 Medical [facility] Chemistry BUN/CREAT 27 6 - 25 02/10/2013 Medical [facility] Chemistry ALBUMIN 4.3 g/dL 3.5 - 5.0 02/10/2013 Medical [facility] Chemistry CALCIUM 9.3 mg/dL 8.5 - 10.5 02/10/2013 Medical [facility] Chemistry SGPT (ALT) 22 U/L 0 - 65 02/10/2013 Medical [facility] Chemistry SGOT (AST) 12 U/L 0 - 37 02/10/2013 Medical [facility] Chemistry ALK PHOS 64 U/L 39 - 136 02/10/2013 [facility] Chemistry TSH 1.290 uIU/mL 0.360 - 3.740 02/10/2013 Medical [facility] Hematology HGB 13.4 g/dL 12.0 - 16.0 02/10/2013 Medical [facility] Hematology HCT 39.2 % 36.0 - 48.0 02/10/2013 Medical [facility] Hematology PLATELETS 260 K/CMM /mm3 133 - 450 02/10/2013 Medical [facility] Hematology ESR 14 mm/hr 0 - 20 02/10/2013 [facility] Urinalysis UA COLOR Yellow 02/10/2013 Medical [facility] Urinalysis BACTERIA URN Occasional 02/10/2013 Medical [facility] Chemistry HGBA1C 6.0 % 02/12/2012 Medical [facility] Chemistry CHOLESTEROL 211 mg/dl 120 - 200 02/12/2012 Medical [facility] Chemistry TRIGLYCERIDE 164 mg/dl 0 - 200 02/12/2012 [facility] Chemistry HDL 35 mg/dl >=35 02/12/2012 [facility] Chemistry LDL 143 mg/dl 0 - 129 02/12/2012 [facility] Chemistry TSH 1.260 uIU/mL 0.360 - 3.740 02/12/2012 [facility] Chemistry SODIUM 142 MEQ/L mmol/L 135 - 145 02/12/2012 [facility] Chemistry POTASSIUM 4.0 MEQ/L mmol/L 3.5 - 5.1 02/12/2012 [facility] BUN 16 mg/dL 7 - 22 02/12/2012 [facility] CREATININE 0.7 mg/dL 0.5 - 1.4 02/12/2012 [facility] BUN/CREAT 23 6 - 25 02/12/2012 [facility] ALBUMIN 4.1 g/dL 3.5 - 5.0 02/12/2012 [facility] CALCIUM 9.1 mg/dL 8.5 - 10.5 02/12/2012 [facility] SGOT (AST) 10 U/L 0 - 37 02/12/2012 [facility] SGPT (ALT) 23 U/L 0 - 65 02/12/2012 [facility] ALK PHOS 62 U/L 39 - 136 02/12/2012 [facility] HGBA1C 6.6 % 07/12/2011 [facility] BUN 17 mg/dL 7 - 22 07/12/2011 [facility] CREATININE 0.8 mg/dL 0.5 - 1.4 07/12/2011 [facility] SODIUM 136 MEQ/L mmol/L 135 - 145 07/12/2011 [facility] POTASSIUM 4.3 MEQ/L mmol/L 3.5 - 5.1 07/12/2011 [facility] CALCIUM 9.4 mg/dL 8.5 - 10.5 07/12/2011 [facility] CHOLESTEROL 169 mg/dl 07/10/2011 [facility] TRIGLYCERIDE 220 mg/dl 07/10/2011 [facility] HDL 31 mg/dl 07/10/2011 [facility] LDL 90 mg/dl 07/10/2011 Medical [facility] Chemistry HGBA1C 6.7 % 07/10/2011 [facility] Vital Signs Vital Sign Value Date Comments Source Weight 90.455 03/04/2019 [facility] BMI Calculated 37.68 03/04/2019 [facility] Height 154.94 cm 03/04/2019 [facility] Heart Rate 57 03/04/2019 [facility] Systolic (mm Hg) 159 03/04/2019 [facility] Diastolic (mm Hg) 91 03/04/2019 [facility] Respitory Rate 15 03/04/2019 [facility] Temperature Oral (F) 98.2 F 03/04/2019 [facility] Height 160.02 cm 04/14/2018 [facility] Weight 90 04/14/2018 [facility] BMI Calculated 35.15 04/14/2018 [facility] Systolic (mm Hg) 114 04/14/2018 [facility] Diastolic (mm Hg) 74 04/14/2018 [facility] Heart Rate 59 04/14/2018 [facility] Height 160.02 cm 04/10/2018 [facility] Weight 90 04/10/2018 [facility] BMI Calculated 35.15 04/10/2018 [facility] Heart Rate 62 04/10/2018 [facility] Systolic (mm Hg) 144 04/10/2018 [facility] Diastolic (mm Hg) 92 04/10/2018 [facility] Weight 89.091 04/08/2018 [facility] BMI Calculated 35.92 04/08/2018 [facility] Temperature Oral (F) 98.5 F 04/08/2018 [facility] Respitory Rate 15 04/08/2018 [facility] Systolic (mm Hg) 147 04/08/2018 [facility] Diastolic (mm Hg) 90 04/08/2018 [facility] Heart Rate 71 04/08/2018 [facility] Height 157.48 cm 04/08/2018 [facility] BMI Calculated 36.09 04/02/2018 [facility] Weight 92.386 04/02/2018 [facility] Systolic (mm Hg) 177 04/02/2018 [facility] Diastolic (mm Hg) 92 04/02/2018 [facility] Heart Rate 66 04/02/2018 [facility] Temperature Oral (F) 98.1 F 04/02/2018 [facility] Height 160 cm 04/02/2018 [facility] BMI Calculated 34.44 11/29/2017 [facility] Weight 88.182 11/29/2017 [facility] Systolic (mm Hg) 161 11/29/2017 [facility] Diastolic (mm Hg) 98 11/29/2017 [facility] Heart Rate 72 11/29/2017 [facility] Respitory Rate 12 11/29/2017 [facility] Temperature Oral (F) 98.4 F 11/29/2017 [facility] Height 160.02 cm 11/29/2017 [facility] Weight 206 06/21/2015 [facility] Systolic (mm Hg) 144 06/21/2015 [facility] Diastolic (mm Hg) 88 06/21/2015 [facility] Temperature Oral (F) 98.6 F 06/21/2015 [facility] Respitory Rate 16 06/21/2015 [facility] Heart Rate 67 06/21/2015 [facility] Weight 193 03/22/2015 [facility] Systolic (mm Hg) 122 03/22/2015 [facility] Diastolic (mm Hg) 80 03/22/2015 [facility] Temperature Oral (F) 98.3 F 03/22/2015 [facility] Heart Rate 65 03/22/2015 [facility] Respitory Rate 17 03/22/2015 [facility] Weight 196 11/08/2014 [facility] Systolic (mm Hg) 122 11/08/2014 [facility] Diastolic (mm Hg) 80 11/08/2014 [facility] Heart Rate 81 11/08/2014 [facility] Weight 201 10/27/2014 [facility] Systolic (mm Hg) 116 10/27/2014 [facility] Diastolic (mm Hg) 70 10/27/2014 [facility] Heart Rate 64 10/27/2014 [facility] Weight 195 08/31/2014 [facility] Systolic (mm Hg) 97 08/31/2014 [facility] Diastolic (mm Hg) 71 08/31/2014 [facility] Temperature Oral (F) 98.8 F 08/31/2014 [facility] Heart Rate 63 08/31/2014 [facility] Respitory Rate 16 08/31/2014 [facility] Weight 198 03/10/2014 [facility] Temperature Oral (F) 98.3 F 03/10/2014 [facility] Systolic (mm Hg) 137 03/10/2014 [facility] Diastolic (mm Hg) 82 03/10/2014 [facility] Heart Rate 61 03/10/2014 [facility] Respitory Rate 18 03/10/2014 [facility] Weight 198 02/15/2014 [facility] Heart Rate 68 02/15/2014 [facility] Systolic (mm Hg) 121 02/15/2014 [facility] Diastolic (mm Hg) 81 02/15/2014 [facility] Weight 198 02/03/2014 [facility] Systolic (mm Hg) 133 02/03/2014 [facility] Diastolic (mm Hg) 77 02/03/2014 [facility] Temperature Oral (F) 98.2 F 02/03/2014 [facility] Heart Rate 63 02/03/2014 [facility] Respitory Rate 18 02/03/2014 [facility] Weight 195 01/28/2014 [facility] Systolic (mm Hg) 113 01/28/2014 [facility] Diastolic (mm Hg) 78 01/28/2014 [facility] Temperature Oral (F) 98.3 F 01/28/2014 [facility] Heart Rate 67 01/28/2014 [facility] Respitory Rate 17 01/28/2014 [facility] Weight 200 09/21/2013 [facility] Temperature Oral (F) 97.9 F 09/21/2013 [facility] Respitory Rate 17 09/21/2013 [facility] Heart Rate 60 09/21/2013 [facility] Systolic (mm Hg) 137 09/21/2013 [facility] Diastolic (mm Hg) 87 09/21/2013 [facility] Weight 203 02/04/2013 [facility] Temperature Oral (F) 98.4 F 02/04/2013 [facility] Heart Rate 62 02/04/2013 [facility] Systolic (mm Hg) 155 02/04/2013 [facility] Diastolic (mm Hg) 83 02/04/2013 [facility] Weight 199 08/29/2012 [facility] Temperature Oral (F) 98.4 F 08/29/2012 [facility] Heart Rate 74 08/29/2012 [facility] Systolic (mm Hg) 149 08/29/2012 [facility] Diastolic (mm Hg) 117 08/29/2012 [facility] Weight 193 08/14/2012 [facility] Temperature Oral (F) 98.3 F 08/14/2012 [facility] Respitory Rate 16 08/14/2012 [facility] Heart Rate 71 08/14/2012 [facility] Systolic (mm Hg) 152 08/14/2012 [facility] Diastolic (mm Hg) 89 08/14/2012 [facility] Weight 194 12/24/2011 [facility] Temperature Oral (F) 97.4 F 12/24/2011 [facility] Heart Rate 78 12/24/2011 [facility] Systolic (mm Hg) 128 12/24/2011 [facility] Diastolic (mm Hg) 86 12/24/2011 [facility] Weight 196 12/19/2011 [facility] Temperature Oral (F) 98.5 F 12/19/2011 [facility] Heart Rate 71 12/19/2011 [facility] Systolic (mm Hg) 114 12/19/2011 [facility] Diastolic (mm Hg) 79 12/19/2011 [facility] Weight 196 11/05/2011 [facility] Temperature Oral (F) 99 F 11/05/2011 [facility] Heart Rate 66 11/05/2011 [facility] Systolic (mm Hg) 168 11/05/2011 [facility] Diastolic (mm Hg) 102 11/05/2011 [facility] Weight 200 07/19/2011 [facility] Respitory Rate 18 07/19/2011 [facility] Temperature Oral (F) 98.4 F 07/19/2011 [facility] Systolic (mm Hg) 117 07/19/2011 [facility] Diastolic (mm Hg) 75 07/19/2011 [facility] Heart Rate 61 07/19/2011 [facility] Weight 199 07/13/2011 [facility] Respitory Rate 18 07/13/2011 [facility] Temperature Oral (F) 98.5 F 07/13/2011 [facility] Systolic (mm Hg) 124 07/13/2011 [facility] Diastolic (mm Hg) 85 07/13/2011 [facility] Heart Rate 69 07/13/2011 [facility] Weight 203 05/15/2011 [facility] Height 63 05/15/2011 [facility] Respitory Rate 18 05/15/2011 [facility] Temperature Oral (F) 98.4 F 05/15/2011 [facility] Heart Rate 67 05/15/2011 [facility] Systolic (mm Hg) 138 05/15/2011 [facility] Diastolic (mm Hg) 67 05/15/2011 [facility] Group Encounters Location Location Details Encounter Type Encounter Number Reason For Visit Attending Provider ADM Date DC Date Status Source [facility] Outpatient [id number] JULIANE KALLIE LEVINE 10/05/2013 Active [facility] Lab Report [id number] Kallie Levine MD 08/31/2014 08/31/2014 Medical [facility] Office Visit [id number] Kallie Levine MD 08/31/2014 08/31/2014 Medical [facility] [place] Office Visit [id number] Franki Mg MD 10/27/2014 10/27/2014 Medical Group [facility] Lab Report [id number] Kallie Levine MD 10/28/2014 10/28/2014 Medical Group [facility] [place] Office Visit [id number] Franki Mg MD 11/08/2014 11/08/2014 Medical Group [facility] Office Visit [id number] Kallie Levine MD 03/22/2015 03/22/2015 Medical Group [facility] Lab Report [id number] Kallie Levine MD 06/21/2015 06/21/2015 Medical Group Outpatient [id number] KALLIE JULIANNA 06/21/[address] [facility] Lab Report [id number] Kallie Levine MD 06/23/2015 06/23/2015 Medical Group Outpatient [id number] JULIO GOLD 07/11/2015 Active [facility] [place] Outpatient [id number] KALLIE JULIANNA 07/20/2015 Active [facility] [place] Outpatient [id number] FRANKI MG 07/28/2015 Active [facility] [place] Outpatient [id number] KALLIE JULIANNA 10/18/2015 Active [facility] [place] Outpatient [id number] KALLIE JULIANNA 02/16/2016 Active [facility] [id number] FRANKI MG 02/16/2016 Active [facility] [place] Outpatient [id number] KALLIE JULIANNA 03/19/2016 Active [facility] [place] [id number] KALLIE JULIANNA 03/20/2016 Active [facility] [place] Outpatient [id number] KALLIE JULIANNA 03/23/2016 Active [facility] Outpatient [id number] KALLIE JULIANNA 07/16/2016 Active [facility] [id number] Kallie [place] 07/16/2016 07/17/2016 [facility] [id number] FRANKI MG 08/16/2016 Active [facility] [place] Outpatient [id number] KALLIE JULIANNA 08/21/2016 Active [facility] [place] Outpatient [id number] KALLIE JULIANNA 08/21/2016 Active [facility] [id number] KALLIE JULIANNA 09/07/2016 Active [facility]patient [id number] KALLIE JULIANNA 09/20/2016 Active [facility] [place] Outpatient [id number] FRANKI MG 10/09/2016 Active [facility] [place] Outpatient [id number] GERBER RENATA 10/16/2016 Active [facility] [place] Outpatient [id number] GERBER RENATA 02/14/2017 Active [facility] [place] Outpatient [id number] KALLIE JULIANNA 02/28/2017 Active [facility] [id number] GERBERANGEL MG 03/05/2017 Active [facility] Outpatient [id number] KALLIE JULIANNA 07/11/2017 Active [facility] Outpatient [id number] KALLIE JULIANNA 08/22/2017 Active [facility] Outpatient [id number] GERBER RENATA 09/05/2017 Active [facility] [place] Outpatient [id number] KALLIE JULIANNA 11/29/2017 Active [facility] Primary Care [facility] Outpatient [id number] Kallie Julianna 11/29/2017 11/30/2017 [facility] Outpatient [id number] KALLIE JULIANNA 04/02/2018 Active [facility] Primary Care [facility] Outpatient [id number] Kallie Julianna 04/02/2018 04/03/2018 [facility] Outpatient [id number] KALLIE JULIANNA 04/08/2018 Active [facility] Primary Care [facility] Outpatient [id number] Kallie [place] 04/08/2018 04/09/2018 [facility] Outpatient [id number] FRANKI MG 04/10/2018 Active [facility] [place] Cardiology [facility] Outpatient [id number] Franki Mg 04/10/2018 04/11/2018 [facility] Outpatient [id number] FRANKI MG 04/14/2018 Active [facility] Cardiology [facility] Outpatient [id number] [facility] 04/14/2018 04/15/2018 [facility] Outpatient [id number] KALLIE JULIANNA 04/14/2018 Active Naren Bansal [facility] Primary Care [facility] Ambulatory Pre-Reg [id number] Kallie [place] 04/14/2018 04/14/2018 [facility] Outpatient Imaging [facility] Outpt Diag Services [id number] Kallie [place] 04/17/2018 04/18/2018 [facility] Primary Care [facility] Phone Message [id number] 05/08/2018 05/10/2018 [facility] Primary Care [facility] Phone Message [id number] 06/03/2018 06/05/2018 [facility] Primary Care [facility] Phone Message [id number] 06/03/2018 06/05/2018 [facility] Outpatient [id number] KALLIE JULIANNA 2018 Active Naren Bansal Outpatient [id number] KALLIE JULIANNA 09/03/2018 Active Naren Bansal Outpatient [id number] [facility] 10/14/2018 Active [facility] [place] Outpatient [id number] KALLIE JULIANNA 12/02/2018 Active Naren Bansal [facility] Primary Care [facility] Phone Message [id number] 02/18/2019 02/20/2019 [facility] Primary Care [facility] Phone Message [id number] 02/27/2019 03/01/2019 [facility] Outpatient [id number] Kallie [place] 03/04/2019 Active Naren Bansal [facility] Primary Care [facility] Outpatient [id number] Kallie Julianna 03/04/2019 03/05/2019 [facility] Outpatient [id number] Kallie Julianna 03/11/2019 Active Naren Bansal Procedures Procedure Code Date Perfomer Comments Source smoking/tobacco cessation, patient education and counseling 14 11/08/2014 yes [facility] smoking/tobacco cessation, patient education and counseling 14 10/27/2014 yes [facility] smoking/tobacco cessation, patient education and counseling 14 08/31/2014 yes [facility] smoking/tobacco cessation, patient education and counseling 14 03/10/2014 DONE [facility] smoking/tobacco cessation, patient education and counseling 14 02/03/2014 DONE [facility] smoking/tobacco cessation, patient education and counseling 14 01/28/2014 DONE [facility] smoking/tobacco cessation, patient education and counseling 14 09/21/2013 yes [facility] smoking/tobacco cessation, patient education and counseling 14 02/04/2013 DONE [facility] smoking/tobacco cessation, patient education and counseling 14 08/14/2012 DONE [facility] smoking/tobacco cessation, patient education and counseling 14 05/15/2011 yes [facility] Repair of knee cruciate ligaments [id number] 11/25/2002 JERAMIE [facility] Repair of knee cruciate ligaments [id number] 11/25/2002 [facility] colonoscopy [id number] 04/25/1994 Normal [facility]
--- OUTSIDE RECORDS SUMMARY | 2019-03-07 12:16 | XMS REPORT | Summary of Care ---
Author Author [facility] Primary Care [facility] Care [facility] Address Unknown Phone Unavailable Encounter HQ Encntr_alias(FIN) [id number] Date(s): 05/08/18 - 05/09/18 [facility] Care [facility] [address] [address]- [phone] Vital Signs No data available for this section Problem List Condition Effective Dates Status Health Status Informant Benign hypertension1 Active Cystocele2 09/21/13 Resolved Dental consultation 06/21/15 Active and report3 Dizziness4, 5, 6, 7, 06/21/15 Active 8 H/O: hematuria9 09/28/13 Resolved Hypercholesterolemia 11/05/11 Active 10 Impaired glucose 08/29/12 Resolved xusgyrsme05 Knee pain12, 13, 14 03/22/15 Resolved Obesity(Confirmed) Active Physical examination 06/21/15 Active zozhuluot61 Shoulder joint 01/28/14 Resolved pain16 Vacjbg70 05/15/11 Active Ajmrofg89 09/21/13 Resolved Thyroid mqneoe01 08/29/12 Active Vitamin D 02/21/14 Active zvfrihqmry83 1Data migrated from [employer] on 04/23/15. [...] Substance Reaction Severity Status metFORMIN Active Medications glipiZIDE 10 mg oral tablet 10 mg=1 tab, PO, Before Breakfast, # 120 tab, 0 Refill(s), Pharmacy: [id number] Start Date: 05/10/18 Status: Ordered propranolol 60 mg oral capsule, extended release 60 mg=1 cap, PO, Daily, # 120 cap, 0 Refill(s), Pharmacy: [facility] [id number] Start Date: 05/10/18 Status: Ordered Results No data available for this section Immunizations Given and Recorded Vaccine Date Status Refusal Reason influenza virus vaccine, inactivated 10/25/16 Recorded influenza virus vaccine, inactivated1 02/03/14 Given tetanus-diphtheria toxoids2 11/25/07 Given 1Result Comment: fluzone (>3 yrs.) [[id number]]. 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 2Result Comment: historical. Migrated from OBS ; Data migrated from [employer] on 12/27/2015. Procedures Procedure Date Related Diagnosis [...]
--- OUTSIDE RECORDS SUMMARY | 2019-03-07 12:16 | XMS REPORT | Summary of Care ---
Author Author [facility] Primary Care [facility] Address Unknown Phone Unavailable Encounter HQ Anuntr_srinivasan(FIN) [id number] Date(s): 04/02/18 - 04/02/18 [facility] [address] [place] [address]- [phone] Discharge Disposition: Home or Self Care Attending [...] 11/05/11 Active 10 Impaired glucose 08/29/12 Resolved zztmxmfor92 Knee pain12, 13, 14 03/22/15 Resolved Obesity(Confirmed) Active Physical examination 06/21/15 Active nniltfhsj58 Shoulder joint 01/28/14 Resolved pain16 Seglac93 05/15/11 Active Bijnkzm61 09/21/13 Resolved Thyroid 08/29/12 Active Vitamin D 02/21/14 Active uklttkyoai60 1Data migrated from [employer] on 04/23/15. [...] Daily, # 90 tab, 1 Refill(s), Pharmacy: [facility] [id number] Start Date: 04/02/18 Status: Ordered glipiZIDE 5 mg oral tablet See Instructions, TAKE 1 TABLET BY MOUTH BEFORE BREAKFAST, # 90 tab, 1 Refill(s) , Pharmacy: [id number] Start Date: 04/02/18 Status: Ordered hydrochlorothiazide-valsartan 25 mg-320 mg oral tablet 1 tab, PO, Daily, # 90 tab, 1 Refill(s), Pharmacy: [id number] Start Date: 04/02/18 Status: Ordered Lipitor 40 mg oral tablet 40 mg=1 tab, PO, Bedtime, # 90 tab, 1 Refill(s), Pharmacy: [facility] [id number] Start Date: 04/02/18 Status: Ordered Results No data available for this section Immunizations Given and Recorded Vaccine Date Status Refusal Reason influenza virus vaccine, inactivated 10/25/16 Recorded influenza virus vaccine, inactivated1 02/03/14 Given tetanus-diphtheria toxoids2 11/25/07 Given 1Result Comment: fluzone (>3 yrs.) [[id number]]. 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, Broker ; Data migrated from [employer] on 12/27/2015. 2Result Comment: historical. 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, Broker ; Data migrated from [employer] on 12/27/2015. Procedures Procedure Date Related Diagnosis Body Site Status Repair of knee cruciate ligaments 2002 Completed Social History Social History Type Response Substance Abuse Use: None. Exercise Exercise duration: 30. Exercise frequency: 3-4 times/week. Exercise type: Walking.1 Employment/School Status: Employed. Work/School description: [employer]. Alcohol Current, Type Liquor. Frequency: 1-2 times [...]
--- OUTSIDE RECORDS SUMMARY | 2019-03-07 12:16 | XMS REPORT | Summary of Care ---
Author Author [facility] Primary Care [facility] Address Unknown Phone Unavailable Encounter HQ Latrell_srinivasan(FIN) [id number] Date(s): 11/29/17 - 11/29/17 [facility] [address] [place] [address]- [phone] Discharge Disposition: Home or Self Care Attending [...] 11/05/11 Active 10 Impaired glucose 08/29/12 Resolved bszdqszca45 Knee pain12, 13, 14 03/22/15 Resolved Obesity(Confirmed) Active Physical examination 06/21/15 Active ssslqidrt39 Shoulder joint 01/28/14 Resolved pain16 Kfsnfp07 05/15/11 Active Ntbgolo35 09/21/13 Resolved Thyroid cciylm95 08/29/12 Active Vitamin D 02/21/14 Active ftphgbbybf76 1Data migrated from [employer] on 04/23/15. [...] symptoms, # 30 mL, 0 Refill(s), Pharmacy: [id number] Start Date: 11/29/17 Status: Ordered azithromycin 250 mg oral tablet See Instructions, Take 2 tablets by mouth the first day then 1 tablet by mouth d aily on days 2-5., X 5 day, # 6 tab, 0 Refill(s), Pharmacy: [facility] [id number] Start Date: 11/29/17 Stop Date: 12/04/17 Status: Ordered ProAir HFA 90 mcg/inh inhalation aerosol with adapter 2 puff, INHALER, Q6H, PRN wheezing, coughing, or shortness of breath, # 1 ea, 1 Refill(s), Pharmacy: [facility] [id number] Start Date: 11/29/17 Status: Ordered Tessalmaría Perles 100 mg oral capsule 100 mg=1 cap, PO, Q8H, PRN cough, do not crush or chew, X 10 day, # 30 cap, 0 Re fill(s), Pharmacy: [facility] [id number] Start Date: 11/29/17 Stop Date: 12/09/17 Status: Ordered Results No data available for this section Immunizations Given and Recorded Vaccine Date Status Refusal Reason influenza virus vaccine, inactivated 10/25/16 Recorded influenza virus vaccine, inactivated1 02/03/14 Given tetanus-diphtheria toxoids2 11/25/07 Given 1Result Comment: fluzone (>3 yrs.) [[id number]]. Migrated from OBS ; Data migrated from [employer] on 12/27/2015. 2Result Comment: historical. Migrated from OBS ; Data migrated from [employer] on 12/27/2015. Procedures Procedure Date Related Diagnosis Body Site Repair of knee cruciate ligaments 2002 Social History Social History Type Response Substance [...] Cessation Counseling No; Started at age: 17.0; 1None Assessment and Plan No data available for this section
--- OUTSIDE RECORDS SUMMARY | 2019-03-07 12:16 | XMS REPORT | Summary of Care ---
Author Author [facility] Primary Care [facility] Organization [facility] Address Unknown Phone Unavailable Encounter HQ Latrell_srinivasan(FIN) [id number] Date(s): 03/04/19 - 03/04/19 [facility] Primary Care [facility] [address] [place], [place] [address]- [phone] Discharge Disposition: Home or Self Care Attending Physician: Kallie Levine MD Referring Physician: Kallie Levine MD Vital Signs Most recent to 1 oldest [Reference Range]: Height 154.94 cm (03/04/19 11:51 AM) Temperature Oral 98.2 DegF [96.4-99.1 DegF] (03/04/19 11:51 AM) Blood Pressure 159/91 mmHg [90-140/60-90 mmHg] *HI* (03/04/19 11:51 AM) Respiratory Rate 15 BRMIN [14-20 BRMIN] (03/04/19 11:51 AM) Peripheral Pulse 57 bpm Rate [60-100 bpm] *LOW* (03/04/19 11:51 AM) Weight 90.455 kg (03/04/19 11:51 AM) Body Mass Index 37.68 m2 (03/04/19 11:51 AM) Problem List Condition Effective Dates Status Health Status Informant Benign hypertension1 Active Cystocele2 09/21/13 Resolved Dental consultation 06/21/15 Active and report3 Dizziness4, 5, 6, 7, 06/21/15 Active 8 H/O: hematuria9 09/28/13 Resolved Hypercholesterolemia 11/05/11 Active 10 Impaired glucose 08/29/12 Resolved kzlmiledb50 Knee pain12, 13, 14 03/22/15 Resolved Obesity(Confirmed) Active Physical examination 06/21/15 Active nwwyprftz98 Shoulder joint 01/28/14 Resolved pain16 Unquvv34 05/15/11 Active Yjhacgo13 09/21/13 Resolved Thyroid uzrgdq38 08/29/12 Active Vitamin D 02/21/14 Active rinkqnbxbe63 1Data migrated from [employer] on 04/23/15. [...] Daily, # 30 tab, 2 Refill(s), Pharmacy: [facility] [id number] Start Date: 03/04/19 Stop Date: 06/02/19 Status: Ordered fenofibrate 48 mg oral tablet =1 cap, PO, Daily, # 30 cap, 2 Refill(s), Pharmacy: [facility] [id number] Start Date: 03/04/19 Stop Date: 06/02/19 Status: Ordered glipiZIDE 10 mg oral tablet 10 mg=1 tab, PO, Before Breakfast, # 30 tab, 2 Refill(s), Pharmacy: [facility] [id number] Start Date: 03/04/19 Stop Date: 06/02/19 Status: Ordered Lipitor 40 mg oral tablet 40 mg=1 tab, PO, Bedtime, # 30 tab, 2 Refill(s), Pharmacy: [facility] [id number] Start Date: 03/04/19 Stop Date: 06/02/19 Status: Ordered Micardis HCT 80 mg-25 mg oral tablet 1 tab, PO, Daily, # 30 tab, 2 Refill(s), Pharmacy: [facility] [id number] Start Date: 03/04/19 Stop Date: 06/02/19 Status: Ordered propranolol 60 mg oral capsule, extended release 60 mg=1 cap, PO, Daily, # 30 cap, 2 Refill(s), Pharmacy: [facility] [id number] Start Date: 03/04/19 Stop Date: 06/02/19 Status: Ordered Results No data available for this section Immunizations Given and Recorded Vaccine Date Status Refusal Reason influenza virus vaccine, inactivated 10/25/16 Recorded influenza virus vaccine, inactivated1 02/03/14 Given tetanus-diphtheria toxoids2 11/25/07 Given 1Result Comment: fluzone (>3 yrs.) [[id number]]. Migrated from [email or web address] ; Data migrated from [employer] on 12/27/2015. 2Result Comment: historical. Migrated from [email or web address] ; Data migrated from [employer] on 12/27/2015. Procedures Procedure Date Related Diagnosis Body Site Status Repair of knee cruciate ligaments 2002 Completed Social History Social History Type Response Substance Abuse Use: None. Exercise Exercise duration: 30. Exercise frequency: 3-4 times/week. Exercise type: Walking.1 Employment/School Status: Employed. Work/School description: [employer] Alcohol Current, Type Liquor. Frequency: 1-2 times per year. Started age 17 Years. Alcohol use interferes with work or home: No. Smoking Status Heavy tobacco smoker; Type: Cigarettes; Exposure to Tobacco Smoke None; Cigarette Smoking Last 365 Days Yes; Reg Smoking Cessation Counseling No; Started at age: 17.0; entered on: 03/04/19 1None Assessment and Plan No data available for this section
--- OUTSIDE RECORDS SUMMARY | 2019-03-07 12:17 | XMS REPORT | Summary of Care ---
Author Author [facility] Primary Care [facility] Organization [facility] Address Unknown Phone Unavailable Encounter HQ Encntr_alias(FIN) [id number] Date(s): 06/03/18 - 06/04/18 [facility] [address] [address] [phone] Vital Signs No data available for this section Problem List Condition Effective Dates Status Health Status Informant Benign hypertension1 Active Cystocele2 09/21/13 Resolved Dental consultation 06/21/15 Active and report3 Dizziness4, 5, 6, 7, 06/21/15 Active 8 H/O: hematuria9 09/28/13 Resolved Hypercholesterolemia 11/05/11 Active 10 Impaired glucose 08/29/12 Resolved rbsxglwti66 Knee pain12, 13, 14 03/22/15 Resolved Obesity(Confirmed) Active Physical examination 06/21/15 Active aiygxmqao33 Shoulder joint 01/28/14 Resolved pain16 Hffybo63 05/15/11 Active Qsjkqwg50 09/21/13 Resolved Thyroid iiizmr70 08/29/12 Active Vitamin D 02/21/14 Active jwlmlbzzef65 1Data migrated from [employer] on 04/23/15. [...] Daily, # 90 tab, 0 Refill(s), Pharmacy: [id number] Start Date: 06/05/18 Status: Ordered Results No data available for this section Immunizations Given and Recorded Vaccine Date Status Refusal Reason influenza virus vaccine, inactivated 10/25/16 Recorded influenza virus vaccine, inactivated1 02/03/14 Given tetanus-diphtheria toxoids2 11/25/07 Given 1Result Comment: fluzone (>3 yrs.) [[id number]]. Migrated from [employer] ; Data migrated from [employer] on 12/27/2015. 2Result Comment: historical. Migrated from [employer] ; Data migrated from [employer] on 12/27/2015. Procedures Procedure Date Related Diagnosis Body Site Status Repair of knee cruciate ligaments 2002 Completed Social History Social History Type Response Substance Abuse Use: None. Exercise Exercise duration: 30. Exercise frequency: 3-4 times/week. Exercise type: Walking.1 Employment/School Status: Employed. Work/School description: [employer]. Alcohol Current, Type Liquor. Frequency: 1-2 times [...]
--- OUTSIDE RECORDS SUMMARY | 2019-03-07 12:17 | XMS REPORT | Summary of Care ---
Author Author [facility] Primary Care [facility] Organization [facility] Address Unknown Phone Unavailable Encounter HQ Encntr_alias(FIN) [id number] Date(s): 06/03/18 - 06/04/18 [facility] [address] [address]- [phone] Vital Signs No data available for this section Problem List Condition Effective Dates Status Health Status Informant Benign hypertension1 Active Cystocele2 09/21/13 Resolved Dental consultation 06/21/15 Active and report3 Dizziness4, 5, 6, 7, 06/21/15 Active 8 H/O: hematuria9 09/28/13 Resolved Hypercholesterolemia 11/05/11 Active 10 Impaired glucose 08/29/12 Resolved qonrjgvfj61 Knee pain12, 13, 14 03/22/15 Resolved Obesity(Confirmed) Active Physical examination 06/21/15 Active vizthhtnk61 Shoulder joint 01/28/14 Resolved pain16 Clegqu70 05/15/11 Active Dabkhyn54 09/21/13 Resolved Thyroid tixtyb07 08/29/12 Active Vitamin D 02/21/14 Active isvdjzhqhq44 1Data migrated from [employer] on 04/23/15. [...] 11/25/07 Given 1Result Comment: fluzone (>3 yrs.) [[id number]]. Migrated from [employer] ; Data migrated from [...] type: Walking.1 Employment/School Status: Employed. Work/School description: [employer]. Alcohol Current, Type Liquor. Frequency: 1-2 times [...]
--- OUTSIDE RECORDS SUMMARY | 2019-03-07 12:17 | XMS REPORT | Summary of Care ---
Author Author [facility] Outpatient Imaging [facility]patient [facility] Address Unknown Phone Unavailable Encounter HQ Yadira(FIN) [id number] Date(s): 07/16/16 - 07/16/16 [facility] Outpatient Imaging [facility] [address] [place], [place] [address] [phone] Discharge Disposition: Home or Self Care Attending Physician: Kallie Levine MD Vital Signs No data available for this section Problem List Condition Effective Dates Status Health Status Informant Benign hypertension1 Active Cystocele2 09/21/13 Resolved Dental consultation 06/21/15 Active and report3 Dizziness4, 5, 6, 7, 06/21/15 Active 8 H/O: hematuria9 09/28/13 Resolved Hypercholesterolemia 11/05/11 Active 10 Impaired glucose 08/29/12 Resolved erkmkoiyg57 Knee pain12, 13, 14 03/22/15 Resolved Obesity(Confirmed) Active Physical examination 06/21/15 Active aozeaxzhr99 Shoulder joint 01/28/14 Resolved pain16 Kievux61 05/15/11 Active Yekxvjg94 09/21/13 Resolved Thyroid 08/29/12 Active Vitamin D 02/21/14 Active sfnoeevvws33 1Data migrated from [employer] on 04/23/15. [...] Adverse Reactions, Alerts Substance Reaction Severity Status NKDA Active Medications No data available for this section Results No data available for this section Immunizations Given and Recorded Vaccine Date Status Refusal Reason influenza virus vaccine, inactivated1 02/03/14 Given tetanus-diphtheria toxoids2 11/25/07 Given 1Result Comment: fluzone (>3 yrs.) [[id number]]. Migrated from [employer] ; Data migrated from [...] type: Walking.1 Employment/School Status: Employed. Work/School description: [employer]. Alcohol Current, Type Liquor. Frequency: 1-2 times per year. Started age 17 Years. Alcohol use interferes with work or home: No. Smoking Status Current every day smoker; Type: Cigarettes; Started at age: 17.0; Exposure to Tobacco Smoke None; Cigarette Smoking Last 365 Days Yes; Reg Smoking Cessation Counseling No 1None Assessment and Plan No data available for this section
--- OUTSIDE RECORDS SUMMARY | 2019-03-07 12:17 | XMS REPORT | Continuity of Care Document ---
Author Author [facility] Organization [facility] Address Unknown Phone Unavailable Care Team Providers Care Patternmaker Hand Name Role Phone MD Julianna, Kallie PP Unavailable Insurance Providers Payer name Policy type / Coverage type Policy ID Covered democrat ID Policy Henriquez [employer] [facility] [place] [employer] [facility] (PP *SELF PAY* [employer] [facility] ([place] SLIDING FEE SCHEDULE - DISCOUNT [employer] - [facility] ([place] SLIDING FEE SCHEDULE - DISCOUNT [employer] [facility] ([place] SLIDING FEE SCHEDULE - DISCOUNT [employer] [facility] (PP SLIDING FEE SCHEDULE - DISCOUNT [employer] [facility] (PP [employer] [facility] (PPO) *SELF PAY* SLIDING FEE SCHEDULE - DISCOUNT [employer] - [facility] [employer] (PP *SELF PAY* SLIDING FEE SCHEDULE - DISCOUNT [employer] - [facility] [employer] ([place] [employer] [facility] [employer] (PP [employer] (PPO) *SELF PAY* SLIDING FEE SCHEDULE - DISCOUNT [employer] - [facility] (PP [employer] [facility] (PPO) *SELF PAY* SLIDING FEE SCHEDULE - DISCOUNT [employer] [facility] ([facility] [employer] [facility] ([facility]) *SELF PAY* SLIDING FEE SCHEDULE - DISCOUNT [employer] [facility] ([facility] [employer] [facility] (PP[facility]) *SELF PAY* SLIDING FEE SCHEDULE - DISCOUNT [employer] [facility] (PP [employer] [facility] ([facility]) *SELF PAY* SLIDING FEE SCHEDULE - DISCOUNT [employer] [facility] ([facility] [employer] [facility] ([facility]) *SELF PAY* SLIDING FEE SCHEDULE - DISCOUNT [employer] [facility] (PP [employer] [facility] (PP[facility]) *SELF PAY* SLIDING FEE SCHEDULE - DISCOUNT [employer] [facility] ([facility] [employer] [facility] (PP[facility]) *SELF PAY* SLIDING FEE SCHEDULE - DISCOUNT [employer] [facility] (PP [employer] [facility] (PP[facility]) *SELF PAY* SLIDING FEE SCHEDULE - DISCOUNT [employer] [facility] (PP [employer] [facility] (PPO) *SELF PAY* SLIDING FEE SCHEDULE - DISCOUNT [employer] [facility] [employer] (PP [employer] [facility] (PP[facility]) *SELF PAY* SLIDING FEE SCHEDULE - DISCOUNT [employer] [facility] (PP [employer] [facility] (PPO) *SELF PAY* SLIDING FEE SCHEDULE - DISCOUNT [employer] [facility] (PP [employer] [facility] (PP[facility]) *SELF PAY* SLIDING FEE SCHEDULE - DISCOUNT [employer] [facility] (PP [facility] [facility] (PP[facility]) *SELF PAY* SLIDING FEE SCHEDULE - DISCOUNT [employer] [facility] (PP [facility] [facility] (PP[facility]) *SELF PAY* SLIDING FEE SCHEDULE - DISCOUNT [employer] [facility] (PP [facility] [facility] (PP[facility]) *SELF PAY* SLIDING FEE SCHEDULE - DISCOUNT [employer] [facility] (PP [facility] [facility] (PPO) *SELF PAY* SLIDING FEE SCHEDULE - DISCOUNT [employer] [facility] (PP [facility] [facility] ([facility]) *SELF PAY* SLIDING FEE SCHEDULE - DISCOUNT [employer] [facility] (PP [facility] [facility] ([facility]) *SELF PAY* SLIDING FEE SCHEDULE - DISCOUNT [employer] [facility] (PP [facility] [facility] ([facility]) *SELF PAY* SLIDING FEE SCHEDULE - DISCOUNT [employer] [facility] (PP [facility] ([facility]) *SELF PAY* SLIDING FEE SCHEDULE - DISCOUNT [employer] [facility] ([facility] [facility] ([facility]) *SELF PAY* SLIDING FEE SCHEDULE - DISCOUNT [employer] [facility] (PP [employer] [facility] (PP [facility] ([facility]) *SELF PAY* SLIDING FEE SCHEDULE - DISCOUNT [employer] [facility] (PP [facility] [facility] (PP[facility]) *SELF PAY* SLIDING FEE SCHEDULE - DISCOUNT [employer] [facility] (PP [facility] (PP[facility]) *SELF PAY* SLIDING FEE SCHEDULE - DISCOUNT [employer] [facility] (PP [facility] ([facility]) *SELF PAY* SLIDING FEE SCHEDULE - DISCOUNT [employer] [facility] (PP [facility] (PP[facility]) *SELF PAY* SLIDING FEE SCHEDULE - DISCOUNT [employer] [facility] (PP [facility] ([facility]) *SELF PAY* SLIDING FEE SCHEDULE - DISCOUNT [employer] [facility] (PP [facility] [facility] ([facility]) *SELF PAY* SLIDING FEE SCHEDULE - DISCOUNT [employer] [facility] (PP [facility] (PP[facility]) *SELF PAY* SLIDING FEE SCHEDULE - DISCOUNT [employer] [facility] (PP [facility] (PP[facility]) *SELF PAY* SLIDING FEE SCHEDULE - DISCOUNT [employer] [facility] (PP [facility] (PP[facility]) *SELF PAY* SLIDING FEE SCHEDULE - DISCOUNT [employer] [facility] (PP [facility] (PP[facility]) *SELF PAY* SLIDING FEE SCHEDULE - DISCOUNT [employer] [facility] (PP [facility] ([facility]) *SELF PAY* SLIDING FEE SCHEDULE - DISCOUNT [facility] - [facility] ([facility]) *SELF PAY* SLIDING FEE SCHEDULE - DISCOUNT [facility] ([facility]) *SELF PAY* SLIDING FEE SCHEDULE - DISCOUNT [facility] ([facility]) *SELF PAY* SLIDING FEE SCHEDULE - DISCOUNT [facility] ([facility]) *SELF PAY* SLIDING FEE SCHEDULE - DISCOUNT [facility] ([facility]) *SELF PAY* SLIDING FEE SCHEDULE - DISCOUNT [facility] ([facility]) *SELF PAY* SLIDING FEE SCHEDULE - DISCOUNT [facility] ([facility]) *SELF PAY* SLIDING FEE SCHEDULE - DISCOUNT [facility] ([facility]) *SELF PAY* SLIDING FEE SCHEDULE - DISCOUNT [facility] ([facility]) *SELF PAY* SLIDING FEE SCHEDULE - DISCOUNT [facility] ([facility]) *SELF PAY* SLIDING FEE SCHEDULE - DISCOUNT [facility] ([facility]) *SELF PAY* SLIDING FEE SCHEDULE - DISCOUNT [facility] ([facility]) *SELF PAY* SLIDING FEE SCHEDULE - DISCOUNT [facility] ([facility]) *SELF PAY* SLIDING FEE SCHEDULE - DISCOUNT [facility] ([facility]) *SELF PAY* SLIDING FEE SCHEDULE - DISCOUNT [facility] ([facility]) *SELF PAY* SLIDING FEE SCHEDULE - DISCOUNT [facility] ([facility]) *SELF PAY* SLIDING FEE SCHEDULE - DISCOUNT [facility] ([facility]) *SELF PAY* SLIDING FEE SCHEDULE - DISCOUNT [facility]) *SELF PAY* SLIDING FEE SCHEDULE - DISCOUNT [facility]) *SELF PAY* SLIDING FEE SCHEDULE - DISCOUNT [facility] *SELF PAY* SLIDING FEE SCHEDULE - DISCOUNT [facility]) *SELF PAY* SLIDING FEE SCHEDULE - DISCOUNT [facility] ([facility]) *SELF PAY* SLIDING FEE SCHEDULE - DISCOUNT [facility]) *SELF PAY* SLIDING FEE SCHEDULE - DISCOUNT [facility]) *SELF PAY* SLIDING FEE SCHEDULE - DISCOUNT [facility] ([facility]) *SELF PAY* SLIDING FEE SCHEDULE - DISCOUNT [facility] ([facility]) *SELF PAY* SLIDING FEE SCHEDULE - DISCOUNT [facility] *SELF PAY* SLIDING FEE SCHEDULE - DISCOUNT [facility] *SELF PAY* SLIDING FEE SCHEDULE - DISCOUNT [facility]) *SELF PAY* SLIDING FEE SCHEDULE - DISCOUNT [facility] *SELF PAY* SLIDING FEE SCHEDULE - DISCOUNT [facility] *SELF PAY* SLIDING FEE SCHEDULE - DISCOUNT [facility] *SELF PAY* SLIDING FEE SCHEDULE - DISCOUNT [facility] *SELF PAY* SLIDING FEE SCHEDULE - DISCOUNT [facility] *SELF PAY* SLIDING FEE SCHEDULE - DISCOUNT [facility] *SELF PAY* SLIDING FEE SCHEDULE - DISCOUNT [facility] *SELF PAY* SLIDING FEE SCHEDULE - DISCOUNT [facility] *SELF PAY* SLIDING FEE SCHEDULE - DISCOUNT Encounters Encounter Performer Location Date Lab Report Kallie Levine MD [facility] Jun 23, 2015 Problems Problem Effective Dates Problem Status HYPERTENSION - BENIGN ESSENTIAL Active FH DIABETES - DM Inactive COUGH, CHRONIC May 15, 2011 Inactive SMOKER May 15, 2011 Active THYROID NODULE May 15, 2011 Inactive GERD May 15, 2011 Inactive DERMATITIS May 15, 2011 Inactive NEUROMUSCULAR DISORDER Jul 01, 2011 Inactive FASTING HYPERGLYCEMIA Jul 11, 2011 Inactive HYPERCHOLESTEROLEMIA Nov 05, 2011 Active ABSCESS, BREAST, LEFT Dec 19, 2011 Inactive SCIATICA, RIGHT Aug 14, 2012 Inactive THYROID NODULE Aug 29, 2012 Active SCREENING, COLON CANCER Aug 29, 2012 Active PREDIABETES Aug 29, 2012 Active FATIGUE, ACUTE Feb 04, 2013 Inactive SNORING Sep 21, 2013 Active CYSTOCELE WITHOUT MENTION UTERINE PROLAPSE LAT Sep 21, 2013 Active HEMATURIA, MICROSCOPIC, HX OF Sep 28, 2013 Inactive SHOULDER PAIN, RIGHT Jan 28, 2014 Active ROUTINE GYNECOLOGICAL EXAMINATION Feb 03, 2014 Active OTHER SCREENING MAMMOGRAM Feb 03, 2014 Active PHYSICAL EXAMINATION Feb 03, 2014 Active SPECIAL SCREENING EXAMINATION OTH SPEC VIRAL DZ Feb 03, 2014 Active VITAMIN D DEFICIENCY Feb 21, 2014 Active DIZZINESS Mar 10, 2014 Active CHEST PAIN (UNSPECIFIED) Nov 08, 2014 Active KNEE PAIN Mar 22, 2015 Active PHYSICAL EXAM Jun 21, 2015 Active DIZZINESS Jun 21, 2015 Active DENTAL EXAMINATION Jun 21, 2015 Active Procedures Date Description Comments May 15, 2011 smoking status current May 15, 2011 smoking/tobacco cessation, patient education and counseling yes Apr 25, 1994 colonoscopy Normal Nov 05, 2011 smoking status current every day smoker Aug 14, 2012 smoking status current every day smoker Aug 14, 2012 smoking/tobacco cessation, patient education and counseling DONE Feb 04, 2013 smoking/tobacco cessation, patient education and counseling DONE Sep 21, 2013 smoking/tobacco cessation, patient education and counseling yes Jan 28, 2014 smoking/tobacco cessation, patient education and counseling DONE Feb 03, 2014 smoking/tobacco cessation, patient education and counseling DONE Mar 10, 2014 smoking/tobacco cessation, patient education and counseling DONE Aug 31, 2014 smoking status Current every day smoker Aug 31, 2014 smoking/tobacco cessation, patient education and counseling yes Oct 27, 2014 smoking status Current every day smoker Oct 27, 2014 smoking/tobacco cessation, patient education and counseling yes Nov 08, 2014 smoking status Current every day smoker Nov 08, 2014 smoking/tobacco cessation, patient education and counseling yes Mar 22, 2015 smoking status Never smoker Jun 21, 2015 smoking status Never smoker Medications Medication Instructions Start Date Status DOXAZOSIN MESYLATE 4 MG TABS 1 po qd May 15, 2011 Active TRIAMTERENE-HCTZ 37.5-25 MG TABS 1 po qd May 15, 2011 Active TUSSIONEX PENNKINETIC ER 8-10 MG/5ML LQCR 1 tsp po bid prn cough May 15, 2011 Inactive PERMETHRIN 5 % CREA put cream on entire body and wash off in 8-14 h, then repeat in 14 d if live mites still present May 15, 2011 Inactive LISINOPRIL 10 MG TABS 1 po qd May 15, 2011 Inactive HYDROXYZINE HCL 25 MG TABS 1 po bid for itching May 15, 2011 Inactive MEDROL (ROXY) 4 MG TABS Take as directed Aug 14, 2012 Inactive PRILOSEC CAP 20MG CR 1 po q a.m. 1 h before eating/drinking anything May 15, 2011 Inactive NASONEX SUSP 50 MCG/ACT 2 spray each nostril daily prn allergies Jul 19, 2011 Inactive DICLOXACILLIN SODIUM 500 MG CAPS take 1 po qid x 10 d Dec 19, 2011 Inactive DIOVAN 160 MG TABS take 1/2 a pill po qd Jul 13, 2011 Inactive DIOVAN 160 MG TAB one po qday Aug 14, 2012 Active CHANTIX STARTING MONTH ROXY 0.5 MG X 11 & 1 MG X 14 MISC 0.5mg po qd x3 days, then 0.5mg bid x3 days, then 1 mg bid Aug 14, 2012 Inactive NAPROXEN 500 MG TABS one po m48sxve prn Aug 14, 2012 Inactive D 2000 2000 UNIT TABS Take 1 pill by mouth once a day Feb 21, 2014 Active LIPITOR 40 MG TABS Take 1 pill by mouth at bedtime Feb 21, 2014 Active METOPROLOL TARTRATE 50 MG TABS take 1 po qd Jul 13, 2011 Inactive Immunizations Vaccine Date Status dT (Diphtheria and Tetanus) booster given Nov 25, 2007 completed influenza immunization (Flu Vax) has been administered Feb 03, 2014 completed Vital Signs Date Description Test Result May 15, 2011 weight E&M - 3141-9 WEIGHT 203 lb May 15, 2011 height E&M - 8302-2 HEIGHT 63 in May 15, 2011 respiratory rate E&M - 9279-1 RESP RATE 18 /min May 15, 2011 temperature E&M TEMPERATURE 98.4 deg f May 15, 2011 pulse rate E&M - 8867-4 PULSE RATE 67 /min May 15, 2011 blood pressure, systolic - 8480-6 BP SYSTOLIC 138 mm Hg May 15, 2011 blood pressure, diastolic - 8462-4 BP DIASTOLIC 67 mm Hg Jul 13, 2011 weight E&M - 3141-9 WEIGHT 199 lb Jul 13, 2011 respiratory rate E&M - 9279-1 RESP RATE 18 /min Jul 13, 2011 temperature E&M TEMPERATURE 98.5 deg f Jul 13, 2011 blood pressure, systolic - 8480-6 BP SYSTOLIC 124 mm Hg Jul 13, 2011 blood pressure, diastolic - 8462-4 BP DIASTOLIC 85 mm Hg Jul 13, 2011 pulse rate E&M - 8867-4 PULSE RATE 69 /min Jul 19, 2011 weight E&M - 3141-9 WEIGHT 200 lb Jul 19, 2011 respiratory rate E&M - 9279-1 RESP RATE 18 /min Jul 19, 2011 temperature E&M TEMPERATURE 98.4 deg f Jul 19, 2011 blood pressure, systolic - 8480-6 BP SYSTOLIC 117 mm Hg Jul 19, 2011 blood pressure, diastolic - 8462-4 BP DIASTOLIC 75 mm Hg Jul 19, 2011 pulse rate E&M - 8867-4 PULSE RATE 61 /min Nov 05, 2011 weight Anthony&M - 3141-9 WEIGHT 196 lb Nov 05, 2011 temperature E&M TEMPERATURE 99 deg f Nov 05, 2011 pulse rate E&M - 8867-4 PULSE RATE 66 /min Nov 05, 2011 blood pressure, systolic - 8480-6 BP SYSTOLIC 168 mm Hg Nov 05, 2011 blood pressure, diastolic - 8462-4 BP DIASTOLIC 102 mm Hg Dec 19, 2011 weight Anthony&M - 3141-9 WEIGHT 196 lb Dec 19, 2011 temperature E&M TEMPERATURE 98.5 deg f Dec 19, 2011 pulse rate E&M - 8867-4 PULSE RATE 71 /min Dec 19, 2011 blood pressure, systolic - 8480-6 BP SYSTOLIC 114 mm Hg Dec 19, 2011 blood pressure, diastolic - 8462-4 BP DIASTOLIC 79 mm Hg Dec 24, 2011 weight E&M - 3141-9 WEIGHT 194 lb Dec 24, 2011 temperature E&M TEMPERATURE 97.4 deg f Dec 24, 2011 pulse rate E&M - 8867-4 PULSE RATE 78 /min Dec 24, 2011 blood pressure, systolic - 8480-6 BP SYSTOLIC 128 mm Hg Dec 24, 2011 blood pressure, diastolic - 8462-4 BP DIASTOLIC 86 mm Hg Aug 14, 2012 weight Anthony&M - 3141-9 WEIGHT 193 lb Aug 14, 2012 temperature E&M TEMPERATURE 98.3 deg f Aug 14, 2012 respiratory rate E&M - 9279-1 RESP RATE 16 /min Aug 14, 2012 pulse rate E&M - 8867-4 PULSE RATE 71 /min Aug 14, 2012 blood pressure, systolic - 8480-6 BP SYSTOLIC 152 mm Hg Aug 14, 2012 blood pressure, diastolic - 8462-4 BP DIASTOLIC 89 mm Hg Aug 29, 2012 weight E&M - 3141-9 WEIGHT 199 lb Aug 29, 2012 temperature E&M TEMPERATURE 98.4 deg f Aug 29, 2012 pulse rate E&M - 8867-4 PULSE RATE 74 /min Aug 29, 2012 blood pressure, systolic - 8480-6 BP SYSTOLIC 149 mm Hg Aug 29, 2012 blood pressure, diastolic - 8462-4 BP DIASTOLIC 117 mm Hg Aug 29, 2012 blood pressure, systolic, second observation BP SYS #2 143 mm Hg Aug 29, 2012 blood pressure, diastolic, second observation BP DAYANA #2 91 mm Hg Feb 04, 2013 weight E&M - 3141-9 WEIGHT 203 lb Feb 04, 2013 temperature E&M TEMPERATURE 98.4 deg f Feb 04, 2013 pulse rate E&M - 8867-4 PULSE RATE 62 /min Feb 04, 2013 blood pressure, systolic - 8480-6 BP SYSTOLIC 155 mm Hg Feb 04, 2013 blood pressure, diastolic - 8462-4 BP DIASTOLIC 83 mm Hg Sep 21, 2013 weight E&M - 3141-9 WEIGHT 200 lb Sep 21, 2013 temperature E&M TEMPERATURE 97.9 deg f Sep 21, 2013 respiratory rate E&M - 9279-1 RESP RATE 17 /min Sep 21, 2013 pulse rate E&M - 8867-4 PULSE RATE 60 /min Sep 21, 2013 blood pressure, systolic - 8480-6 BP SYSTOLIC 137 mm Hg Sep 21, 2013 blood pressure, diastolic - 8462-4 BP DIASTOLIC 87 mm Hg Jan 28, 2014 weight E&M - 3141-9 WEIGHT 195 lb Jan 28, 2014 blood pressure, systolic - 8480-6 BP SYSTOLIC 113 mm Hg Jan 28, 2014 blood pressure, diastolic - 8462-4 BP DIASTOLIC 78 mm Hg Jan 28, 2014 temperature E&M TEMPERATURE 98.3 deg f Jan 28, 2014 pulse rate E&M - 8867-4 PULSE RATE 67 /min Jan 28, 2014 respiratory rate E&M - 9279-1 RESP RATE 17 /min Feb 03, 2014 weight E&M - 3141-9 WEIGHT 198 lb Feb 03, 2014 blood pressure, systolic - 8480-6 BP SYSTOLIC 133 mm Hg Feb 03, 2014 blood pressure, diastolic - 8462-4 BP DIASTOLIC 77 mm Hg Feb 03, 2014 temperature E&M TEMPERATURE 98.2 deg f Feb 03, 2014 pulse rate E&M - 8867-4 PULSE RATE 63 /min Feb 03, 2014 respiratory rate E&M - 9279-1 RESP RATE 18 /min Feb 15, 2014 weight E&M - 3141-9 WEIGHT 198 lb Feb 15, 2014 pulse rate E&M - 8867-4 PULSE RATE 68 /min Feb 15, 2014 blood pressure, systolic - 8480-6 BP SYSTOLIC 121 mm Hg Feb 15, 2014 blood pressure, diastolic - 8462-4 BP DIASTOLIC 81 mm Hg Mar 10, 2014 weight E&M - 3141-9 WEIGHT 198 lb Mar 10, 2014 temperature E&M TEMPERATURE 98.3 deg f Mar 10, 2014 blood pressure, systolic - 8480-6 BP SYSTOLIC 137 mm Hg Mar 10, 2014 blood pressure, diastolic - 8462-4 BP DIASTOLIC 82 mm Hg Mar 10, 2014 pulse rate E&M - 8867-4 PULSE RATE 61 /min Mar 10, 2014 respiratory rate E&M - 9279-1 RESP RATE 18 /min Aug 31, 2014 weight E&M - 3141-9 WEIGHT 195 lb Aug 31, 2014 blood pressure, systolic - 8480-6 BP SYSTOLIC 97 mm Hg Aug 31, 2014 blood pressure, diastolic - 8462-4 BP DIASTOLIC 71 mm Hg Aug 31, 2014 temperature E&M TEMPERATURE 98.8 deg f Aug 31, 2014 pulse rate E&M - 8867-4 PULSE RATE 63 /min Aug 31, 2014 respiratory rate E&M - 9279-1 RESP RATE 16 /min Aug 31, 2014 blood pressure, systolic, second observation BP SYS #2 100 mm Hg Aug 31, 2014 blood pressure, diastolic, second observation BP DAYANA #2 68 mm Hg Aug 31, 2014 blood pressure, systolic, supine, r arm BP SYS SUP R 98 null Aug 31, 2014 blood pressure, diastolic, supine, right arm BP DAYANA SUP R 66 null Aug 31, 2014 blood pressure, systolic, supine, left arm BP SYS SUP L 96 mm Hg Aug 31, 2014 blood pressure, diastolic, supine, left arm BP DAYANA SUP L 62 mm Hg Aug 31, 2014 pulse rate, supine, right PULSE SUP R 64 /min Aug 31, 2014 pulse rate, supine, left PULSE SUP L 65 /min Aug 31, 2014 blood pressure, systolic, sitting BP SYS SIT 106 mm Hg Aug 31, 2014 blood pressure, diastolic, sitting BP DAYANA SIT 71 mm Hg Aug 31, 2014 pulse rate, sitting PULSE SIT 63 /min Aug 31, 2014 blood pressure, systolic, standing BP SYS STAND 96 mm Hg Aug 31, 2014 blood pressure, diastolic, standing BP DAYANA STAND 64 mm Hg Aug 31, 2014 pulse rate, standing PULSE STAND 68 /min Oct 27, 2014 weight E&M - 3141-9 WEIGHT 201 lb Oct 27, 2014 blood pressure, systolic, sitting, left arm BP SYS SIT L 116 mm Hg Oct 27, 2014 blood pressure, diastolic, sitting, left arm BP DAYANA SIT L 70 mm Hg Oct 27, 2014 pulse rate, sitting, left PULSE SIT L 64 /min Oct 27, 2014 blood pressure, systolic - 8480-6 BP SYSTOLIC 116 mm Hg Oct 27, 2014 pulse rate E&M - 8867-4 PULSE RATE 64 /min Oct 27, 2014 blood pressure, diastolic - 8462-4 BP DIASTOLIC 70 mm Hg Nov 08, 2014 weight E&M - 3141-9 WEIGHT 196 lb Nov 08, 2014 blood pressure, systolic, sitting, left arm BP SYS SIT L 122 mm Hg Nov 08, 2014 blood pressure, diastolic, sitting, left arm BP DAYANA SIT L 80 mm Hg Nov 08, 2014 pulse rate, sitting, left PULSE SIT L 81 /min Nov 08, 2014 blood pressure, systolic - 8480-6 BP SYSTOLIC 122 mm Hg Nov 08, 2014 pulse rate E&M - 8867-4 PULSE RATE 81 /min Nov 08, 2014 blood pressure, diastolic - 8462-4 BP DIASTOLIC 80 mm Hg Mar 22, 2015 weight E&M - 3141-9 WEIGHT 193 lb Mar 22, 2015 blood pressure, systolic - 8480-6 BP SYSTOLIC 122 mm Hg Mar 22, 2015 blood pressure, diastolic - 8462-4 BP DIASTOLIC 80 mm Hg Mar 22, 2015 temperature E&M TEMPERATURE 98.3 deg f Mar 22, 2015 pulse rate E&M - 8867-4 PULSE RATE 65 /min Mar 22, 2015 respiratory rate E&M - 9279-1 RESP RATE 17 /min Jun 21, 2015 weight E&M - 3141-9 WEIGHT 206 lb Jun 21, 2015 blood pressure, systolic - 8480-6 BP SYSTOLIC 144 mm Hg Jun 21, 2015 blood pressure, diastolic - 8462-4 BP DIASTOLIC 88 mm Hg Jun 21, 2015 temperature E&M TEMPERATURE 98.6 deg f Jun 21, 2015 respiratory rate E&M - 9279-1 RESP RATE 16 /min Jun 21, 2015 pulse rate E&M - 8867-4 PULSE RATE 67 /min Jun 21, 2015 blood pressure, systolic, second observation BP SYS #2 120 mm Hg Jun 21, 2015 blood pressure, diastolic, second observation BP DAYANA #2 90 mm Hg Results Date Description Test Name Value Reference Interpretation Status Mar 10, 2014 hemoglobin, blood HGB 12.7 g/dL 12.0-16.0 Mar 10, 2014 hematocrit, blood HCT 37.9 % 36.0-48.0 Mar 10, 2014 platelet count PLATELETS 281 K/CMM /mm3 133-450 Feb 10, 2013 hemoglobin, blood HGB 13.4 g/dL 12.0-16.0 Feb 10, 2013 hematocrit, blood HCT 39.2 % 36.0-48.0 Feb 10, 2013 platelet count PLATELETS 260 K/CMM /mm3 133-450 Feb 10, 2013 erythrocyte sedimentation rate ESR 14 mm/hr 0-20 Sep 21, 2013 hemoglobin, blood HGB 12.7 g/dL 12.0-16.0 Sep 21, 2013 hematocrit, blood HCT 38.4 % 36.0-48.0 Sep 21, 2013 platelet count PLATELETS 285 K/CMM /mm3 133-450 Feb 10, 2014 hemoglobin, blood HGB 12.8 g/dL 12.0-16.0 Feb 10, 2014 hematocrit, blood HCT 37.7 % 36.0-48.0 Feb 10, 2014 platelet count PLATELETS 255 K/CMM /mm3 133-450 Mar 10, 2014 hemoglobin, blood HGB 12.7 g/dL 12.0-16.0 Mar 10, 2014 hematocrit, blood HCT 37.9 % 36.0-48.0 Mar 10, 2014 platelet count PLATELETS 281 K/CMM /mm3 133-450 Aug 31, 2014 hemoglobin, blood HGB 13.0 g/dL 12.0-16.0 Aug 31, 2014 hematocrit, blood HCT 37.8 % 36.0-48.0 Aug 31, 2014 platelet count PLATELETS 285 K/CMM /mm3 133-450 Mar 10, 2014 sodium, serum SODIUM 139 MEQ/L mmol/L 135-145 Mar 10, 2014 potassium, serum POTASSIUM 4.4 MEQ/L mmol/L 3.5-5.1 Mar 10, 2014 creatinine, serum CREATININE 0.6 mg/dL 0.5-1.4 Mar 10, 2014 urea nitrogen, blood BUN 14 mg/dL 7-22 Mar 10, 2014 urea nitrogen/creatinine ratio, serum BUN/CREAT 23 null 6-25 Mar 10, 2014 albumin, serum ALBUMIN 4.3 g/dL 3.5-5.0 Mar 10, 2014 calcium, serum CALCIUM 9.1 mg/dL 8.5-10.5 Mar 10, 2014 alanine aminotransferase (SGPT), serum SGPT (ALT) 20 U/L 0-65 Mar 10, 2014 aspartate aminotransferase (SGOT), serum SGOT (AST) 12 U/L 0-37 Mar 10, 2014 alkaline phosphatase, serum ALK PHOS 63 U/L 39-136 Jul 12, 2011 hemoglobin A1C, blood, as % of total hemoglobin HGBA1C 6.6 % - Jul 12, 2011 urea nitrogen, blood BUN 17 mg/dL 7-Jul 12, 2011 creatinine, serum CREATININE 0.8 mg/dL 0.5-1.4 Jul 12, 2011 sodium, serum SODIUM 136 MEQ/L mmol/L 135-145 Jul 12, 2011 potassium, serum POTASSIUM 4.3 MEQ/L mmol/L 3.5-5.1 Jul 12, 2011 calcium, serum CALCIUM 9.4 mg/dL 8.5-10.5 Jul 09, 2011 cholesterol, serum CHOLESTEROL 169 mg/dl Jul 09, 2011 triglyceride, serum, fasting TRIGLYCERIDE 220 mg/dl Jul 09, 2011 HDL cholesterol, serum HDL 31 mg/dl Jul 09, 2011 LDL cholesterol, serum LDL 90 mg/dl Jul 09, 2011 hemoglobin A1C, blood, as % of total hemoglobin HGBA1C 6.7 % Feb 12, 2012 hemoglobin A1C, blood, as % of total hemoglobin HGBA1C 6.0 % Feb 12, 2012 cholesterol, serum CHOLESTEROL 211 mg/dl 120-200 High Feb 12, 2012 triglyceride, serum, fasting TRIGLYCERIDE 164 mg/dl 0-200 Feb 12, 2012 HDL cholesterol, serum HDL 35 mg/dl >=35 Feb 12, 2012 LDL cholesterol, serum LDL 143 mg/dl 0-129 High Feb 12, 2012 thyroid stimulating hormone, serum TSH 1.260 uIU/mL 0.360-3.740 Feb 12, 2012 sodium, serum SODIUM 142 MEQ/L mmol/L 135-145 Feb 12, 2012 potassium, serum POTASSIUM 4.0 MEQ/L mmol/L 3.5-5.1 Feb 12, 2012 urea nitrogen, blood BUN 16 mg/dL 7-Feb 12, 2012 creatinine, serum CREATININE 0.7 mg/dL 0.5-1.4 Feb 12, 2012 urea nitrogen/creatinine ratio, serum BUN/CREAT 23 null 6-25 Feb 12, 2012 albumin, serum ALBUMIN 4.1 g/dL 3.5-5.0 Feb 12, 2012 calcium, serum CALCIUM 9.1 mg/dL 8.5-10.5 Feb 12, 2012 aspartate aminotransferase (SGOT), serum SGOT (AST) 10 U/L 0-37 Feb 12, 2012 alanine aminotransferase (SGPT), serum SGPT (ALT) 23 U/L 0-65 Feb 12, 2012 alkaline phosphatase, serum ALK PHOS 62 U/L 39-136 Aug 29, 2012 LDL cholesterol, serum LDL null mg/dl Normal Aug 29, 2012 HDL cholesterol, serum HDL null mg/dl Normal Aug 29, 2012 triglyceride, serum, fasting TRIGLYCERIDE null mg/dl Normal Aug 29, 2012 cholesterol, serum CHOLESTEROL null mg/dl Normal Feb 10, 2013 hemoglobin A1C, blood, as % of total hemoglobin HGBA1C 6.3 % Feb 10, 2013 cholesterol, serum CHOLESTEROL 197 mg/dl 120-200 Feb 10, 2013 triglyceride, serum, fasting TRIGLYCERIDE 157 mg/dl 0-200 Feb 10, 2013 HDL cholesterol, serum HDL 27 mg/dl >=35 Low Feb 10, 2013 LDL cholesterol, serum LDL 139 mg/dl 0-129 High Feb 10, 2013 sodium, serum SODIUM 142 MEQ/L mmol/L 135-145 Feb 10, 2013 potassium, serum POTASSIUM 4.1 MEQ/L mmol/L 3.5-5.1 Feb 10, 2013 creatinine, serum CREATININE 0.6 mg/dL 0.5-1.4 Feb 10, 2013 urea nitrogen, blood BUN 16 mg/dL 7-22 Feb 10, 2013 urea nitrogen/creatinine ratio, serum BUN/CREAT 27 null 6-25 High Feb 10, 2013 albumin, serum ALBUMIN 4.3 g/dL 3.5-5.0 Feb 10, 2013 calcium, serum CALCIUM 9.3 mg/dL 8.5-10.5 Feb 10, 2013 alanine aminotransferase (SGPT), serum SGPT (ALT) 22 U/L 0-65 Feb 10, 2013 aspartate aminotransferase (SGOT), serum SGOT (AST) 12 U/L 0-37 Feb 10, 2013 alkaline phosphatase, serum ALK PHOS 64 U/L 39-136 Feb 10, 2013 thyroid stimulating hormone, serum TSH 1.290 uIU/mL 0.360-3.740 Sep 21, 2013 hemoglobin A1C, blood, as % of total hemoglobin HGBA1C 6.3 % <=5.6 High Sep 21, 2013 cholesterol, serum CHOLESTEROL 191 mg/dl <=199 Sep 21, 2013 triglyceride, serum, fasting TRIGLYCERIDE 174 mg/dl <=149 High Sep 21, 2013 HDL cholesterol, serum HDL 37 mg/dl >=61 Low Sep 21, 2013 LDL cholesterol, serum LDL 119 mg/dl <=99 High Sep 21, 2013 sodium, serum SODIUM 140 MEQ/L mmol/L 135-145 Sep 21, 2013 potassium, serum POTASSIUM 4.3 MEQ/L mmol/L 3.5-5.1 Sep 21, 2013 creatinine, serum CREATININE 0.7 mg/dL 0.5-1.4 Sep 21, 2013 urea nitrogen, blood BUN 13 mg/dL 7-Sep 21, 2013 urea nitrogen/creatinine ratio, serum BUN/CREAT 19 null 6-25 Sep 21, 2013 albumin, serum ALBUMIN 4.5 g/dL 3.5-5.0 Sep 21, 2013 calcium, serum CALCIUM 10.0 mg/dL 8.5-10.5 Sep 21, 2013 alanine aminotransferase (SGPT), serum SGPT (ALT) 27 U/L 0-65 Sep 21, 2013 aspartate aminotransferase (SGOT), serum SGOT (AST) 15 U/L 0-37 Sep 21, 2013 alkaline phosphatase, serum ALK PHOS 73 U/L 39-136 Sep 21, 2013 thyroid stimulating hormone, serum TSH 2.700 uIU/mL 0.360-3.740 Feb 10, 2014 hemoglobin A1C, blood, as % of total hemoglobin HGBA1C 6.6 % <=5.6 High Feb 10, 2014 cholesterol, serum CHOLESTEROL 148 mg/dl <=199 Feb 10, 2014 triglyceride, serum, fasting TRIGLYCERIDE 160 mg/dl <=149 High Feb 10, 2014 HDL cholesterol, serum HDL 33 mg/dl >=61 Low Feb 10, 2014 LDL cholesterol, serum LDL 83 mg/dl <=99 Feb 10, 2014 sodium, serum SODIUM 139 MEQ/L mmol/L 135-145 Feb 10, 2014 potassium, serum POTASSIUM 4.0 MEQ/L mmol/L 3.5-5.1 Feb 10, 2014 creatinine, serum CREATININE 0.6 mg/dL 0.5-1.4 Feb 10, 2014 urea nitrogen, blood BUN 14 mg/dL -Feb 10, 2014 urea nitrogen/creatinine ratio, serum BUN/CREAT 23 null 6-25 Feb 10, 2014 albumin, serum ALBUMIN 4.3 g/dL 3.5-5.0 Feb 10, 2014 calcium, serum CALCIUM 9.2 mg/dL 8.5-10.5 Feb 10, 2014 alanine aminotransferase (SGPT), serum SGPT (ALT) 20 U/L 0-65 Feb 10, 2014 aspartate aminotransferase (SGOT), serum SGOT (AST) 9 U/L 0-37 Feb 10, 2014 alkaline phosphatase, serum ALK PHOS 61 U/L 39-136 Feb 10, 2014 thyroid stimulating hormone, serum TSH 1.800 uIU/mL 0.360-3.740 Mar 10, 2014 sodium, serum SODIUM 139 MEQ/L mmol/L 135-145 Mar 10, 2014 potassium, serum POTASSIUM 4.4 MEQ/L mmol/L 3.5-5.1 Mar 10, 2014 creatinine, serum CREATININE 0.6 mg/dL 0.5-1.4 Mar 10, 2014 urea nitrogen, blood BUN 14 mg/dL -Mar 10, 2014 urea nitrogen/creatinine ratio, serum BUN/CREAT 23 null -Mar 10, 2014 albumin, serum ALBUMIN 4.3 g/dL 3.5-5.0 Mar 10, 2014 calcium, serum CALCIUM 9.1 mg/dL 8.5-10.5 Mar 10, 2014 alanine aminotransferase (SGPT), serum SGPT (ALT) 20 U/L 0-65 Mar 10, 2014 aspartate aminotransferase (SGOT), serum SGOT (AST) 12 U/L 0-37 Mar 10, 2014 alkaline phosphatase, serum ALK PHOS 63 U/L 39-136 Aug 31, 2014 hemoglobin A1C, blood, as % of total hemoglobin HGBA1C 6.5 % <=5.6 High Aug 31, 2014 cholesterol, serum CHOLESTEROL 166 mg/dl <=199 Aug 31, 2014 triglyceride, serum, fasting TRIGLYCERIDE 340 mg/dl <=149 High Aug 31, 2014 HDL cholesterol, serum HDL 30 mg/dl >=61 Low Aug 31, 2014 LDL cholesterol, serum LDL 68 mg/dl <=99 Aug 31, 2014 sodium, serum SODIUM 141 MEQ/L mmol/L 135-145 Aug 31, 2014 potassium, serum POTASSIUM 4.1 MEQ/L mmol/L 3.5-5.1 Aug 31, 2014 creatinine, serum CREATININE 0.6 mg/dL 0.5-1.4 Aug 31, 2014 urea nitrogen, blood BUN 15 mg/dL -Aug 31, 2014 urea nitrogen/creatinine ratio, serum BUN/CREAT 25 null 6-Aug 31, 2014 albumin, serum ALBUMIN 4.1 g/dL 3.5-5.0 Aug 31, 2014 calcium, serum CALCIUM 9.5 mg/dL 8.5-10.5 Aug 31, 2014 alanine aminotransferase (SGPT), serum SGPT (ALT) 22 U/L 0-65 Aug 31, 2014 aspartate aminotransferase (SGOT), serum SGOT (AST) 14 U/L 0-37 Aug 31, 2014 alkaline phosphatase, serum ALK PHOS 66 U/L 39-136 Oct 01, 2013 urine color UA COLOR Colorless null Yellow Oct 01, 2013 bacteria, urine microscopy BACTERIA URN Occasional null None Seen Feb 10, 2013 urine color UA COLOR Yellow null Yellow Feb 10, 2013 bacteria, urine microscopy BACTERIA URN Occasional null None Seen Sep 21, 2013 urine color UA COLOR Light Yellow null Yellow Sep 21, 2013 bacteria, urine microscopy BACTERIA URN Occasional null None Seen Oct 01, 2013 urine color UA COLOR Colorless null Yellow Oct 01, 2013 bacteria, urine microscopy BACTERIA URN Occasional null None Seen Feb 10, 2014 urine color UA COLOR Light Yellow null Yellow Feb 10, 2014 bacteria, urine microscopy BACTERIA URN Occasional null None Seen Jun 21, 2015 urine color UA COLOR Light Yellow null Yellow Jun 21, 2015 bacteria, urine microscopy BACTERIA URN Occasional null None Seen
--- OUTSIDE RECORDS SUMMARY | 2019-03-07 12:18 | XMS REPORT | Continuity of Care Document ---
Author Author [facility] Organization [facility] Address Unknown Phone Unavailable Care Team Providers Care Estimator And Drafter Supervisor Name Role Phone MD Julianna, Kallie PP Unavailable Insurance Providers Payer name Policy type / Coverage type Policy ID Covered green party ID Policy Henriquez [employer] - [facility] [...] Location Date Lab Report Kallie Levine MD [facility] Jun 21, 2015 Problems Problem Effective Dates Problem Status [...] Inactive NAPROXEN 500 MG TABS one po [id number] prn Aug 14, 2012 Inactive D 2000 [...]
--- OUTSIDE RECORDS SUMMARY | 2019-03-07 12:18 | XMS REPORT | Continuity of Care Document ---
Author Author [facility] Organization [facility] Address Unknown Phone Unavailable Care Team Providers Care Nail Making Machine Setter Name Role Phone MD Julianna, Kallie PP Unavailable Insurance Providers Payer name Policy type / Coverage type Policy ID Covered libertarian ID Policy Henriquez [employer] - [facility] [...] - DISCOUNT Encounters Encounter Performer Location Date Office Visit Kallie Levine MD [facility] Aug 31, 2014 Problems Problem Effective Dates Problem Status HYPERTENSION [...] 2014 Active DIZZINESS Mar 10, 2014 Active Procedures Date Description Comments May 15, [...] smoking/tobacco cessation, patient education and counseling yes Medications Medication Instructions Start Date Status DOXAZOSIN [...] 1 po qd May 15, 2011 Inactive METOPROLOL TARTRATE 50 MG TABS take 1 po qd Jul 13, 2011 Active HYDROXYZINE HCL 25 MG TABS 1 po [...] Inactive NAPROXEN 500 MG TABS one po [id number] prn Aug 14, 2012 Inactive SIMVASTATIN 20 MG TABS Take 1 pill by mouth at bedtime Feb 21, 2014 Active D 2000 2000 UNIT TABS Take 1 pill by mouth once a day Feb 21, 2014 Active Immunizations Vaccine Date Status dT (Diphtheria and [...] RATE 61 /min Nov 05, 2011 weight E&M - 3141-9 WEIGHT 196 lb Nov 05, 2011 temperature E&M TEMPERATURE 99 deg f Nov 05, 2011 pulse rate E&M - 8867-4 PULSE RATE 66 /min Nov 05, 2011 blood pressure, systolic - 8480-6 BP SYSTOLIC 168 mm Hg Nov 05, 2011 blood pressure, diastolic - 8462-4 BP DIASTOLIC 102 mm Hg Dec 19, 2011 weight E&M - 3141-9 WEIGHT 196 lb Dec 19, [...] 86 mm Hg Aug 14, 2012 weight E&M - 3141-9 WEIGHT 193 lb Aug 14, [...] pulse rate, standing PULSE STAND 68 /min Results Date Description Test Name Value Reference [...] 2011 urea nitrogen, blood BUN 17 mg/dL 7-22 Jul 12, 2011 creatinine, serum CREATININE 0.8 mg/dL [...] 2012 urea nitrogen, blood BUN 16 mg/dL 7-22 Feb 12, 2012 creatinine, serum CREATININE 0.7 mg/dL [...] urea nitrogen/creatinine ratio, serum BUN/CREAT 19 null -Sep 21, 2013 albumin, serum ALBUMIN 4.5 g/dL [...] urea nitrogen/creatinine ratio, serum BUN/CREAT 23 null -Feb 10, 2014 albumin, serum ALBUMIN 4.3 g/dL [...] urea nitrogen/creatinine ratio, serum BUN/CREAT 25 null 6-25 Aug 31, 2014 albumin, serum ALBUMIN 4.1 g/dL [...]
--- OUTSIDE RECORDS SUMMARY | 2019-03-07 12:19 | XMS REPORT | Continuity of Care Document ---
Author Author [facility] Organization [facility] Address Unknown Phone Unavailable Care Team Providers Care Pencils Washer Name Role Phone MD Julianna, Kallie PP [...] Location Date Lab Report Kallie Levine MD [facility] [employer] Oct 28, 2014 Problems Problem Effective Dates Problem Status [...] for itching May 15, 2011 Inactive MEDROL (ORXY) 4 MG TABS Take as directed Aug [...] Inactive NAPROXEN 500 MG TABS one po [id number] prn Aug 14, 2012 Inactive D 2000 2000 UNIT TABS Take 1 pill by mouth once a day Feb 21, 2014 Active LIPITOR 40 MG TABS Take 1 pill by mouth at bedtime Feb 21, 2014 Active Immunizations Vaccine Date [...] - 8462-4 BP DIASTOLIC 70 mm Hg Results Date Description Test Name [...] 2014 urea nitrogen, blood BUN 14 mg/dL 7-Mar 10, 2014 urea nitrogen/creatinine ratio, serum BUN/CREAT [...] 2011 urea nitrogen, blood BUN 17 mg/dL -Jul 12, 2011 creatinine, serum CREATININE 0.8 mg/dL [...] 2014 urea nitrogen, blood BUN 15 mg/dL 7-Aug 31, 2014 urea nitrogen/creatinine ratio, serum BUN/CREAT 25 null -Aug 31, 2014 albumin, serum ALBUMIN 4.1 g/dL [...]
--- OUTSIDE RECORDS SUMMARY | 2019-03-07 12:19 | XMS REPORT | Continuity of Care Document ---
Author Author [facility] Organization [facility] Address Unknown Phone Unavailable Care Team Providers Care Drafting Detailer Name Role Phone MD Julianna, Kallie PP [...] Kallie Levine MD [facility] Aug 31, 2014 Problems Problem [...] Inactive NAPROXEN 500 MG TABS one po [id number] prn Aug 14, 2012 Inactive SIMVASTATIN 20 [...]
--- OUTSIDE RECORDS SUMMARY | 2019-03-07 12:20 | XMS REPORT | Continuity of Care Document ---
Author Author [facility] Organization [facility] Address Unknown Phone Unavailable Care Team Providers Care Digital Strategist Name Role Phone MD Mg Sanford PP Unavailable Insurance Providers Payer name Policy [...] DISCOUNT [employer] - [employer] Encounters Encounter Performer Location Date Office Visit Franki Mg MD [facility] Cardiology Nov 08, 2014 Problems Problem Effective Dates Problem Status [...] CHEST PAIN (UNSPECIFIED) Nov 08, 2014 Active Procedures Date Description Comments May [...] Inactive NAPROXEN 500 MG TABS one po [id number] prn Aug 14, 2012 Inactive D 2000 [...] - 8462-4 BP DIASTOLIC 80 mm Hg Results Date Description Test Name [...] 2013 urea nitrogen, blood BUN 16 mg/dL 7-Feb 10, 2013 urea nitrogen/creatinine ratio, serum BUN/CREAT [...] 2013 urea nitrogen, blood BUN 13 mg/dL -Sep 21, 2013 urea nitrogen/creatinine ratio, serum BUN/CREAT [...] urea nitrogen, blood BUN 14 mg/dL 7-22 Feb 10, 2014 urea nitrogen/creatinine ratio, serum BUN/CREAT [...]
--- OUTSIDE RECORDS SUMMARY | 2019-03-07 12:21 | XMS REPORT ---
Author Author [facility] Address Unknown Phone Unavailable Care Team Providers Care Machine Operator Assistant Name Role Phone Anthony Loyd Unavailable Unavailable Problems This patient has no known problems. Allergies, Adverse Reactions, Alerts This patient has no known allergies or adverse reactions. Medications This patient has no known medications. Encounters Start Date/Time End Date/Time Encounter Type Admission Type Attending [facility] Care Facility Care Department Encounter ID 2018-03-25 10:29:00 2018-03-25 10:29:00 Outpatient Aaron Loyd [id number] 08:24:00 2017-08-12 08:24:00 Outpatient Aaron Loyd [id number]
--- OUTSIDE RECORDS SUMMARY | 2019-03-07 12:21 | XMS REPORT | Continuity of Care Document ---
Author Author [facility] Organization [facility] Address Unknown Phone Unavailable Care Team Providers Care Airport Maintenance Laborer Name Role Phone MD Mg Sanford PP [...] Location Date Office Visit Franki Mg MD [facility] Cardiology Oct 27, 2014 Problems Problem Effective Dates Problem Status [...] Inactive NAPROXEN 500 MG TABS one po [id number] prn Aug 14, 2012 Inactive D 2000 [...] RATE 18 /min Aug 31, 2014 weight Anthony&Ramses - 3141-9 WEIGHT 195 lb Aug 31, [...] 2014 urea nitrogen, blood BUN 14 mg/dL 7-Feb 10, 2014 urea nitrogen/creatinine ratio, serum BUN/CREAT [...]
--- OUTSIDE RECORDS SUMMARY | 2019-03-07 12:21 | XMS REPORT | Continuity of Care Document ---
Author Author [facility] Organization [facility] Address Unknown Phone Unavailable Care Team Providers Care Principal Associate Name Role Phone MD Julianna, Kallie PP [...] Location Date Office Visit Kallie Levine MD [facility] Mar 22, 2015 Problems Problem Effective Dates Problem Status [...] Active KNEE PAIN Mar 22, 2015 Active Procedures Date Description Comments May [...] Mar 22, 2015 smoking status Never smoker Medications Medication [...] Inactive NAPROXEN 500 MG TABS one po [id number] prn Aug 14, 2012 Inactive D 2000 [...] E&M - 9279-1 RESP RATE 17 /min Results Date Description Test Name Value [...]
--- NOTE | 2019-03-07 12:40 | NUR ---
DR. DIAZ AT BEDSIDE FOR PT EVAL AT THIS TIME.
[2019-03-07] MEDS ORDERED: ASPIRIN 325 MG TAB PO ONE (12:45)
--- NOTE | 2019-03-07 13:15 | NUR ---
RADIOLOGY AT BEDSIDE FOR CXR AT THIS TIME.
[2019-03-07 13:18] LABS: BASOPHILS % 0.4 % (0.0-1.0); EOSINOPHILS # (AUTO) 0.2 (0.0-0.4); EOSINOPHILS % 2.7 % (0.0-6.0); HEMATOCRIT 39.1 % (34.2-44.1); HEMOGLOBIN 13.4 g/dL (12.0-16.0); LYMPHOCYTES # (AUTO) 2.7 (1.0-3.2); LYMPHOCYTES % 33.8 % (18.0-39.1); MEAN CORPUSCULAR HEMOGLOBIN 30.2 pg (28-32); MEAN CORPUSCULAR HGB CONC 34.3 g/dL (31-35); MEAN CORPUSCULAR VOLUME 88.1 fL (81-99); MONOCYTES # (AUTO) 0.6 (0.2-0.8); MONOCYTES % 7.5 % (4.4-11.3); NEUTROPHILS # (AUTO) 4.3 (2.1-6.9); PLATELET COUNT 311 x10e3/uL (140-360); RED BLOOD COUNT 4.44 x10e6/uL (3.6-5.1); RED CELL DISTRIBUTION WIDTH 12.8 % (11.7-14.4)
[2019-03-07 13:27] LABS: INR 0.92; PARTIAL THROMBOPLASTIN TIME 29.6 seconds (23.8-35.5); PROTHROMBIN TIME 12.9 seconds (11.9-14.5)
[2019-03-07] MEDS ORDERED: [UNRECOGNIZED DRUG - CODE] PO (13:32)
[2019-03-07] MEDS ORDERED: ATORVASTATIN CA40 MG PO (13:32)
[2019-03-07] MEDS ORDERED: AMLODIPINE BESYL5 MG PO (13:32)
[2019-03-07] MEDS ORDERED: GLIPIZIDE10 MG PO (13:32)
[2019-03-07] MEDS ORDERED: AMLODIPINE BES2.5 MG PO (13:32)
[2019-03-07] MEDS ORDERED: PROPRANOLOL HCL60 MG PO (13:32)
[2019-03-07] MEDS ORDERED: TRICOR48 MG PO (13:32)
[2019-03-07 13:36] LABS: ALANINE AMINOTRANSFERASE 15 IU/L (0-55); ALBUMIN 3.8 g/dL (3.5-5.0); ALKALINE PHOSPHATASE 64 IU/L (40-150); ANION GAP 10.6 mmol/L (8-16); BLOOD UREA NITROGEN 14 mg/dL (7-26); BUN/CREATININE RATIO 18 (6-25); CARBON DIOXIDE 27 mmol/L (22-29); CHLORIDE 103 mmol/L (98-107); CREATINE KINASE 59 IU/L (29-168); EST GLOMERULAR FILTRATION RATE > 60 ML/MIN (60-); GLUCOSE 185 mg/dL (74-118); POTASSIUM 3.6 mmol/L (3.5-5.1); SODIUM 137 mmol/L (136-145)
[2019-03-07] MEDS ORDERED: ONDANSETRON HCL INJ 2MG/ML 2ML 2 MG/ML VIAL IV ONE (14:00)
--- NOTE | 2019-03-07 14:10 | Diagnostic Imaging Report ---
EXAMINATION: CHEST SINGLE (PORTABLE) INDICATION: Shortness of breath. COMPARISON: None FINDINGS: TUBES and LINES: None. LUNGS: Lungs are well inflated. Mild patchy bibasilar opacities, likely atelectasis. There is no evidence of pneumonia or pulmonary edema. PLEURA: No pleural effusion or pneumothorax. Slight nonspecific elevation of the right hemidiaphragm. HEART AND MEDIASTINUM: The cardiomediastinal silhouette is unremarkable. BONES AND SOFT TISSUES: No acute osseous lesion. Soft tissues are unremarkable. UPPER ABDOMEN: No free air under the diaphragm. IMPRESSION: No acute radiographic abnormality. Signed by: Dr. Rajiv Burks MD on 03/07/2019 2:07 PM
--- NOTE | 2019-03-07 14:13 | Diagnostic Imaging Report ---
Examination: CT BRAIN WO CONTRAST History:Left foot and leg numbness. Comparison studies:None Technique: Axial images were obtained from the skull base to the vertex. Coronal and sagittal images reconstructed from the axial data. Dose modulation, iterative reconstruction, and/or weight based adjustment of the mA/kV was utilized to reduce the radiation dose to as low as reasonably achievable. Intravenous contrast: None Findings: Scalp: No abnormalities. Bones: No fractures, blastic or lytic lesions. Brain sulci: Appropriate for age. Ventricles: Normal in size and configuration. No hydrocephalus. Extra-axial space: No abnormalities. Parenchyma: No abnormal densities. No masses, hemorrhage, or acute or chronic cortical based vascular insults.. Sellar/suprasellar region: No abnormalities. Craniocervical junction: Patent foramen magnum. No Chiari one malformation. Incidental findings: Atherosclerotic calcification of the supraclinoid internal carotid arteries. Impression: No intracranial abnormalities. Signed by: Dr. Ade Frausto M.D. on 03/07/2019 2:10 PM
[2019-03-07 14:38] LABS: CLARITY,URINE HAZY (CLEAR); COLOR,URINE YELLOW (YELLOW)
[2019-03-07 14:39] LABS: BILIRUBIN,URINE NEGATIVE (NEGATIVE); KETONES,URINE NEGATIVE (NEGATIVE); LEUKOCYTE ESTERASE ,URINE NEGATIVE (NEGATIVE); NITRITE,URINE NEGATIVE (NEGATIVE); PROTEIN,URINE DIPSTICK TRACE (NEGATIVE); URINE UROBILINOGEN 0.2 mg/dL (0.2 - 1)
[2019-03-07 15:00] LABS: EPITHELIAL CELLS,URINE MANY /LPF
[2019-03-07] MEDS ORDERED: DICYCLOMINE HCL 20 MG/2 ML VIAL IM ONE (15:00)
[2019-03-07 15:01] LABS: BACTERIA,URINE RARE /HPF; RBC,URINE 0-5 /HPF (0-5); WBC,URINE (MAN) 0-5 /HPF (0-5)
--- NOTE | 2019-03-07 15:45 | Diagnostic Imaging Report ---
Examination: MRI BRAIN WO CONTRAST History: Left leg paresis. Comparison studies: Head CT earlier today. Technique: Sagittal T2; axial DWI, FLAIR, GRE or SWI, T1, Coronal FLAIR. Intravenous contrast: None Findings: Scalp: No abnormal signal. No masses. Bone marrow: Normal in signal intensity. Brain volume: Adequate for age. No volume loss. Ventricles: Normal in size and configuration. No hydrocephalus. Extra-axial spaces: No abnormalities. Parenchyma: There are a few scattered punctate areas of T2/FLAIR hyperintensity in the subcortical white matter, nonspecific. No masses, hemorrhage, or acute or chronic vascular insults. Suprasellar and sellar region: Empty sella. Craniocervical junction: No abnormalities. The foramen magnum is patent. No Chiari malformations. Vessels: Normal flow-voids in the arteries and sinuses. Additional findings:None. IMPRESSION: No acute intracranial abnormalities. Signed by: Dr. Ade Frausto M.D. on 03/07/2019 3:42 PM
--- NOTE | 2019-03-07 17:02 | Diagnostic Imaging Report ---
Examination: CT LUMBAR SPINE WO CONTRAST History: Low back pain with left leg numbness and weakness. Comparison studies: None Technique: Axial images were obtained through the lumbar spine from T12. Coronal and sagittal reconstructions obtained from the axial data. Dose modulation, iterative reconstruction, and/or weight based adjustment of the mA/kV was utilized to reduce the radiation dose to as low as reasonably achievable. Intravenous contrast: None Findings: The usual 5 non-rib bearing lumbar vertebral bodies are present. Alignment: Normal lordosis. No scoliosis. Soft tissues: No abnormalities. Paraspinal muscles: No abnormalities. Sacroiliac joints: Bilateral vacuum phenomenon due to degenerative changes. Vertebrae: No fractures, infection or neoplasm. Degenerative changes: L1-L2: No abnormalities. L2-L3: No abnormalities. L3-L4: Moderate to severe bilateral facet arthropathy. No disc bulge or herniation or canal or foraminal stenosis. L4-L5: Moderate to severe bilateral facet arthropathy. No disc bulge or herniation or canal or foraminal stenosis. L5-S1: Moderate to severe bilateral facet arthropathy. No disc bulge or herniation or canal or foraminal stenosis. IMPRESSION: 1. Moderate to severe bilateral facet arthropathy. 2. No disc bulge or herniation or canal or foraminal stenosis. Signed by: Dr. Ade Frausto M.D. on 03/07/2019 4:59 PM
[2019-03-07 18:48] VITALS: BP 122/53
== END 2019-03-07 19:02 | disposition home or self-care (01) ==
LOC: ER 12:12
DX: R53.1 Weakness (principal); E11.65 Type 2 diabetes mellitus with hyperglycemia; E11.40 Type 2 diabetes mellitus with diabetic neuropathy, unspecified; R26.2 Difficulty in walking, not elsewhere classified; I10 Essential (primary) hypertension
CPT/HCPCS: 36415; 70450; 70551; 71045; 72131; 80053; 81001; 82550; 82553; 84443; 84484; 85025; 85610; 85730; 93005; 96372; 96374; 99284; J0500; J2405

== ENCOUNTER 2022-10-03 23:37 | Emergency (ER) | payer OTHER ==
[~2022-10-03] VITALS: Ht 160 cm; Wt 88.5 kg
[~2022-10-03 23:37] MED LIST: AMLODIPINE BES2.5 MG PO; AMLODIPINE BESYL5 MG PO; ATORVASTATIN CA40 MG PO; GLIPIZIDE10 MG PO; PROPRANOLOL HCL60 MG PO; TRICOR48 MG PO; [UNRECOGNIZED DRUG - CODE] PO
[2022-10-04] MEDS ORDERED: HYDROXYZINE HCL25 MG PO (00:19)
== END 2022-10-04 00:20 | disposition home or self-care (01) ==
LOC: ER 23:52
DX: R21 Rash and other nonspecific skin eruption (principal); L29.9 Pruritus, unspecified
CPT/HCPCS: 99282